=== PATIENT | male | born 1980 | race Two or more races ===

== ENCOUNTER 2017-03-15 15:45 | Inpatient (IN) | payer BC ==
[2017-03-15 17:07] VITALS: BMI 27.9
--- NOTE | 2017-03-15 20:34 | HP ---
CIWA Score - CIWA Score Nausea/Vomitin Muscle Tremors: 3 Anxiety: 2 Agitation: 2 Paroxysmal Sweats: 1-Minimal Palms Moist Orientation: 0-Oriented Tacttile Disturbances: 1-Very Mild Itch/Numbness Auditory Disturbances: 0-None Visual Disturbances: 2-Mild Sensitivity Headache: 1-Very Mild CIWA-Ar Total Score: 14 Admission ROS BHS - HPI Chief Complaint: WITHDRAWAL SYMPTOMS Allergies/Adverse Reactions: Allergies Allergy/AdvReac Type Severity Reaction Status Date / Time No Known Allergies Allergy Verified 03/15/17 17:18 History of Present Illness: 37 Y.O. MAN WITH A HISTORY OF ALCOHOL DEPENDENCE IS HERE SEEKING DETOX SERVICES. CLIENT WAS DISCHARGED TODAY FROM [facility] FOR AFTER BEING ADMITTED 2 DAYS FOR TREATMENT OF PNEUMONIA. HE ASSESSED TO R/O ACUTE SKULL FX AFTER HITTING HIS HEAD DURING SYNCOPE EPISODE. Exam Limitations: No Limitations - Ebola screening Have you traveled outside of the country in the last 21 days: No Have you had contact with anyone from an Ebola affected area: No Have you been sick,other than usual withdrawal symptoms: No Do you have a fever: No - Review of Systems Constitutional: Chills, Loss of Appetite, Unintentional Wgt. Loss EENT: reports: Tearing, Nose Congestion Respiratory: reports: Cough, Shortness of Breath, Wheezing Cardiac: reports: Chest Pain GI: reports: Nausea : reports: Frequency Musculoskeletal: reports: Back Pain, Joint Pain Integumentary: reports: Bruising Neuro: reports: Headache, Tremors Endocrine: reports: No Symptoms Reported Hematology: reports: Anemia Psychiatric: reports: Orientated x3, Anxious, Depressed, other (BIPOLAR) Other Systems: Reviewed and Negative Patient History - Patient Medical History Hx Anemia: Yes Hx Asthma: No Hx Chronic Obstructive Pulmonary Disease (COPD): No Hx Cancer: No Hx Cardiac Disorders: No Hx Congestive Heart Failure: No Hx Hypertension: No Hx Hypercholesterolemia: No Hx Pacemaker: No HX Cerebrovascular Accident: No 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; REPORTS BLACKS R/T ETOH) Hx Dementia: Yes Hx Diabetes: No Hx Gastrointestinal Disorders: No Hx Liver Disease: No Hx Genitourinary Disorders: No Hx Sexually Transmitted Disorders: No Hx Renal Disease (ESRD): No Hx Thyroid Disease: No Hx Human Immunodeficiency Virus (HIV): No Hx Hepatitis C: No Hx Depression: Yes Hx Suicide Attempt: Yes (ATTEMPTED DRUG OVERDOSE MANY YEARS AGO) Hx Bipolar Disorder: Yes Hx Schizophrenia: No - Patient Surgical History Past Surgical History: No Hx Neurologic Surgery: No Hx Cataract Extraction: No Hx Cardiac Surgery: No Hx Lung Surgery: No Hx Breast Surgery: No Hx Breast Biopsy: No Hx Abdominal Surgery: No Hx Appendectomy: No Hx Cholecystectomy: No Hx Genitourinary Surgery: No Hx Section: No Hx Orthopedic Surgery: No Anesthesia Reaction: No - PPD History Previous Implant?: Yes Documented Results: Negative w/o proof PPD to be Administered?: Yes - Reproductive History Patient is a Female of Child Bearing Age (11 -55 yrs old): No - Smoking Cessation Smoking history: Current every day smoker Have you smoked in the past 12 months: Yes Aproximately how many cigarettes per day: 10 Hx Chewing Tobacco Use: No Initiated information on smoking cessation: Yes 'Breaking Loose' booklet given: 03/15/17 - Substance & Tx. History Hx Alcohol Use: Yes Hx Substance Use: Yes Substance Use Type: Alcohol Hx Substance Use Treatment: No - Substances Abused Alcohol Route: Oral Frequency: Daily Amount used: LIQUOR- 2 PINTS, BEER- 4 (25oz) Age of first use: 14 Date of Last Use: 03/14/17 Family Disease History - Family Disease History Family Disease History: Heart Disease: Grandparent, CA: Grandparent, Respiratory : Mother, Other: Father (OPIOID DEPENDENCE) Admission Physical Exam S - Vital Signs Vital Signs: Vital Signs - 24 hr 03/15/17 17:05 Temperature 98.8 F Pulse Rate 73 Respiratory 18 Rate Blood Pressure 136/92 - Physical General Appearance: Yes: Tremorous, Irritable, Sweating, Anxious HEENTM: Yes: Hearing grossly Normal, Normocephalic Respiratory: Yes: Chest Non-Tender, Lungs Clear, No Respiratory Distress, No Accessory Muscle Use Neck: Yes: No masses,lesions,Nodules, Trachea in good position Breast: Yes: Breast Exam Deferred Cardiology: Yes: Regular Rhythm, Regular Rate Abdominal: Yes: Normal Bowel Sounds, Non Tender Genitourinary: Yes: Other (NO COMPLAINTS REPORTED) Back: Yes: Normal Inspection Musculoskeletal: Yes: full range of Motion, Gait Steady, Pelvis Stable Extremities: Yes: Normal Inspection, Normal Range of Motion, Non-Tender Neurological: Yes: Alert, Normal Mood/Affect, Normal Response Integumentary: Yes: Normal Color, Dry, Warm Lymphatic: Yes: Within Normal Limits - Diagnostic (1) Alcohol dependence with uncomplicated withdrawal Current Visit: Yes Status: Chronic (2) Pneumonia Current Visit: Yes Status: Acute (3) Nicotine dependence Current Visit: Yes Status: Chronic Cleared for Admission [facility] - Detox or Rehab [facility] Level of Care: Medically Managed Detox Regimen/Protocol: Librium S Breath Alcohol Content Breath Alcohol Content: 0 Urine Drug Screen - Results Drug Screen Negative: Yes
[2017-03-15] MEDS ORDERED: IBUPROFEN 400 MG TABLET (FP) PO PRN (20:55)
[2017-03-15] MEDS ORDERED: MENTHOL/PHENOL 1 EACH UD MM PRN (20:55)
[2017-03-15] MEDS ORDERED: MAGNESIUM HYDROX 2400MG/30ML ORAL SUSPENSION 30 ML CUP PO PRN (20:55)
[2017-03-15] MEDS ORDERED: chlordiazePOXIDE HCL 25 MG CAPSULE PO PRN (20:55)
[2017-03-15] MEDS ORDERED: NICOTINE POLACRILEX 4 MG GUM BC PRN (20:55)
[2017-03-15] MEDS ORDERED: hydrOXYzine PAMOATE 50 MG CAPSULE (FP) PO PRN (20:55)
[2017-03-15] MEDS ORDERED: chlordiazePOXIDE HCL 25 MG CAPSULE PO ONE (20:55)
[2017-03-15] MEDS ORDERED: MAGNESIUM CITRATE 300 ML BOTTLE PO PRN (20:55)
[2017-03-15] MEDS ORDERED: LOPERAMIDE HCL 2 MG CAPSULE PO PRN (20:55)
[2017-03-15] MEDS ORDERED: P-EPHED 60MG/TRIPROLIDI 2.5MG TABLET PO PRN (20:55)
[2017-03-15] MEDS ORDERED: MAG HYDROX/AL HYDROX/SIMETH 30 ML UNIT-DOSE CUP PO PRN (20:55)
[2017-03-15] MEDS ORDERED: NICOTINE POLACRILEX 2 MG GUM BC PRN (20:55)
[2017-03-15] MEDS ORDERED: ACETAMINOPHEN 325 MG TABLET (FP) PO PRN (20:55)
[2017-03-15] MEDS ORDERED: guaiFENesin/D-METHORPHAN HB 10 ML UNIT-DOSE CUPS PO PRN (20:55)
[2017-03-15] MEDS: chlordiazePOXIDE HCL 25 MG CAPSULE PO SCH (23:10)
[2017-03-15] MEDS: THIAMINE HCL 100 MG TABLET (FP) PO SCH (23:10)
[2017-03-16 01:30] LABS: URINE APPEARANCE CLEAR; URINE BILIRUBIN NEGATIVE (NEGATIVE); URINE BLOOD NEGATIVE (NEGATIVE); URINE COLOR YELLOW; URINE GLUCOSE (UA) NEGATIVE (NEGATIVE); URINE KETONE TRACE (NEGATIVE); URINE NITRITE NEGATIVE (NEGATIVE); URINE PROTEIN NEGATIVE (NEGATIVE); URINE UROBILINOGEN 4.0 E.U/dl mg/dL (0.2-1.0)
[2017-03-16] MEDS: chlordiazePOXIDE HCL 25 MG CAPSULE PO SCH ×4 (05:22→22:28)
--- NOTE | 2017-03-16 09:03 | EKG ---
Test Reason : Blood Pressure : / mmHG Vent. Rate : 076 BPM Atrial Rate : 076 BPM P-R Int : 148 ms QRS Dur : 096 ms QT Int : 386 ms P-R-T Axes : 072 066 062 degrees QTc Int : 434 ms NORMAL SINUS RHYTHM NONSPECIFIC T WAVE ABNORMALITY ABNORMAL ECG NO PREVIOUS ECGS AVAILABLE Confirmed by CORIE OLIVAS MD ([id number]) on 03/16/2017 9:02:39 AM Referred By: Confirmed By:CORIE OLIVAS MD
[2017-03-16] MEDS ORDERED: LEVOFLOXACIN 750 MG TABLET PO SCH (10:00)
[2017-03-16 10:25] LABS: ALK PHOS 78 U/L (45-117); ANION GAP 8 (8-16); BILIRUBIN,TOTAL 1.3 mg/dL (0.2-1.0); CALCIUM 8.1 mg/dL (8.5-10.1); CO2 25 mmol/L (21-32); CREATININE 0.9 mg/dL (0.7-1.3); GLUCOSE,RANDOM 121 mg/dL (74-106); MCH 32.2 pg (25.7-33.7); MCHC 33.2 g/dl (32.0-35.9); MEAN CELL VOLUME 96.8 fl (80-96); MEAN PLT VOLUME 8.1 fl (7.5-11.1); PLATELET COUNT 280 K/MM3 (134-434); RDW 13.2 % (11.9-15.9); SGOT/AST 19 U/L (15-37); SGPT/ALT 20 U/L (12-78); TOT PROT 6.6 g/dl (6.4-8.2); WHITE BLOOD COUNT 6.8 K/mm3 (4.0-10.0)
[2017-03-16 10:34] LABS: URINE LEUK ESTERASE Negative (NEGATIVE)
[2017-03-16] MEDS: PRENATAL VITAMINS W/ FOLIC ACID TABLET (FP) PO SCH (12:09)
[2017-03-16] MEDS: LEVOFLOXACIN 500 MG, LEVOFLOXACIN 250 MG PO SCH (12:09)
[2017-03-16] MEDS: NICOTINE 14 MG/24 HOURS TOPICAL PATCH TD SCH (12:10)
--- NOTE | 2017-03-16 14:58 | PN ---
S CIWA - CIWA Score Nausea/Vomitin-No Nausea/No Vomiting Muscle Tremors: 3 Anxiety: 4-Mod. Anxious/Guarded Agitation: 4-Moderately Restless Paroxysmal Sweats: 3 Orientation: 0-Oriented Tacttile Disturbances: 0-None Auditory Disturbances: 0-None Visual Disturbances: 0-None Headache: 0-None Present CIWA-Ar Total Score: 14 BHS Progress Note (SOAP) Subjective: Sweating,interrupted sleep,restless,tremors,anxiety Objective: 03/16/17 14:57 Vital Signs - 8 hr 03/16/17 14:37 Temperature 98.1 F Pulse Rate 85 Respiratory 20 Rate Blood Pressure 125/73 Laboratory Tests 03/15/17 03/16/17 03/16/17 22:30 08:20 08:20 WBC 6.8 RBC 3.72 L Hgb 12.0 Hct 36.0 MCV 96.8 H MCH 32.2 MCHC 33.2 RDW 13.2 Plt Count 280 MPV 8.1 Sodium 142 Potassium 3.8 Chloride 109 H Carbon Dioxide 25 Anion Gap 8 BUN 11 Creatinine 0.9 Creat Clearance w eGFR > 60 Random Glucose 121 H Calcium 8.1 L Total Bilirubin 1.3 H AST 19 ALT 20 Alkaline Phosphatase 78 Total Protein 6.6 Albumin 3.0 L Urine Color Yellow Urine Appearance Clear Urine pH 6.0 Ur Specific [place] 1.011 Urine Protein Negative Urine Glucose (UA) Negative Urine Ketones Trace H Urine Blood Negative Urine Nitrite Negative Urine Bilirubin Negative Urine Urobilinogen 4.0 e.u/dl Ur Leukocyte Esterase Negative RPR Titer 03/16/17 08:20 WBC RBC Hgb Hct MCV MCH MCHC RDW Plt Count MPV Sodium Potassium Chloride Carbon Dioxide Anion Gap BUN Creatinine Creat Clearance w eGFR Random Glucose Calcium Total Bilirubin AST ALT Alkaline Phosphatase Total Protein Albumin Urine Color Urine Appearance Urine pH Ur Specific [place] Urine Protein Urine Glucose (UA) Urine Ketones Urine Blood Urine Nitrite Urine Bilirubin Urine Urobilinogen Ur Leukocyte Esterase RPR Titer Nonreactive labs noted Assessment: 03/16/17 14:57 Withdrawal sx. Plan: Continue detox
--- NOTE | 2017-03-16 17:36 | CONSULT ---
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 Substance Abuse History: Confirmed by patient in this session.See [facility] report for details : Smoking history: Current every day smoker. Have you smoked in the past 12 months: Yes. Aproximately how many cigarettes per day: 10. Hx Chewing Tobacco Use: No. Initiated information on smoking cessation: Yes. ' Breaking Loose' booklet given: 03/15/17. - Substance & Tx. History. Hx Alcohol Use: Yes. Hx Substance Use: Yes. Substance Use Type: Alcohol. Hx Substance Use Treatment: No. - Substances Abused. Alcohol. Route: Oral. Frequency: Daily. Amount used: LIQUOR- 2 PINTS, BEER- 4 (25oz). Age of first use: 14. Date of Last Use: 03/14/17 Medical History: Recently treated for pneumonia,history of anemis,seizures ( withdrawal-related),lower back pain and tendinitis. Psychiatric History: Patient admits to past psychiatric hospitalizations ( [facility] [place] : 2003).Diagnosed with Bipolar Disorder and PTSD.Used to be prescribed abilify.No history of OPD care.Mr Lamar reports total non-exposure to psychotropic medications for eight months.Decided to abstain from medications because of side effects (self-report).patient admits to a history of suicide attempts via overdose with cocaine (two years ago). Physical/Sexual Abuse/Trauma History: Patient declines to discuss this domain. Additional Comment: Drug Screen is negative.Noted. Mental Status Exam - Mental Status Exam Alert and Oriented to: Time, Place, Person Cognitive Function: Good Patient Appearance: Well Groomed Mood: Withdrawn, Anxious Affect: Mood Congruent Patient Behavior: Fatigued, Appropriate, Cooperative Speech Pattern: Clear, Appropriate Voice Loudness: Normal Thought Process: Goal Oriented Thought Disorder: Not Present Hallucinations: Denies Suicidal Ideation: Denies Homicidal Ideation: Denies Insight/Judgement: Poor Sleep: Poorly, Difficulty falling asleep (wants ambien) Appetite: Good Muscle strength/Tone: Normal Gait/Station: Normal Psychiatric Findings - Problem List ([place] 1, 2,3) (1) Alcohol dependence with uncomplicated withdrawal Current Visit: Yes Status: Acute (2) Nicotine dependence Current Visit: Yes Status: Acute (3) Substance induced mood disorder Current Visit: Yes Status: Acute (4) Insomnia Current Visit: Yes Status: Acute - Initial Treatment Plan Initial Treatment Plan: Psychoeducation.Detoxification.Sleep hygiene.Ambien 10 mg po hs prn.Patient is informed of potential for parasomnias.He agrees with this careplan.Observation.
[2017-03-16] MEDS: ZOLPIDEM TARTRATE 5 MG TABLET PO PRN (22:28)
[2017-03-16] MEDS: THIAMINE HCL 100 MG TABLET (FP) PO SCH (22:28)
[2017-03-17] MEDS: LEVOFLOXACIN 500 MG, LEVOFLOXACIN 250 MG PO SCH (05:37)
[2017-03-17] MEDS: chlordiazePOXIDE HCL 25 MG CAPSULE PO SCH ×3 (05:37→17:35)
--- NOTE | 2017-03-17 10:18 | PN ---
[facility] CIWA - CIWA Score Nausea/Vomitin-No Nausea/No Vomiting Muscle Tremors: 3 Anxiety: 2 Agitation: 2 Paroxysmal Sweats: 2 Orientation: 0-Oriented Tacttile Disturbances: 0-None Auditory Disturbances: 0-None Visual Disturbances: 0-None Headache: 0-None Present CIWA-Ar Total Score: 9 S Progress Note (SOAP) Subjective: sweat tremor anxiety GI upset Objective: 03/17/17 10:17 Vital Signs Temperature 97.7 F 03/17/17 09:51 Pulse Rate 83 03/17/17 09:51 Respiratory Rate 18 03/17/17 09:51 Blood Pressure 132/77 03/17/17 09:51 O2 Sat by Pulse Oximetry (%) Laboratory Last Values WBC 6.8 K/mm3 (4.0-10.0) 03/16/17 08:20 RBC 3.72 M/mm3 (4.00-5.60) L 03/16/17 08:20 Hgb 12.0 GM/dL (11.7-16.9) 03/16/17 08:20 Hct 36.0 % (35.4-49) 03/16/17 08:20 MCV 96.8 fl (80-96) H 03/16/17 08:20 MCH 32.2 pg (25.7-33.7) 03/16/17 08:20 MCHC 33.2 g/dl (32.0-35.9) 03/16/17 08:20 RDW 13.2 % (11.9-15.9) 03/16/17 08:20 Plt Count 280 K/MM3 (134-434) 03/16/17 08:20 MPV 8.1 fl (7.5-11.1) 03/16/17 08:20 Sodium 142 mmol/L (136-145) 03/16/17 08:20 Potassium 3.8 mmol/L (3.5-5.1) 03/16/17 08:20 Chloride 109 mmol/L (98-107) H 03/16/17 08:20 Carbon Dioxide 25 mmol/L (21-32) 03/16/17 08:20 Anion Gap 8 (8-16) 03/16/17 08:20 BUN 11 mg/dL (7-18) 03/16/17 08:20 Creatinine 0.9 mg/dL (0.7-1.3) 03/16/17 08:20 Creat Clearance w eGFR > 60 (>60) 03/16/17 08:20 Random Glucose 121 mg/dL (74-106) H 03/16/17 08:20 Calcium 8.1 mg/dL (8.5-10.1) L 03/16/17 08:20 Total Bilirubin 1.3 mg/dL (0.2-1.0) H 03/16/17 08:20 AST 19 U/L (15-37) 03/16/17 08:20 ALT 20 U/L (12-78) 03/16/17 08:20 Alkaline Phosphatase 78 U/L (45-117) 03/16/17 08:20 Total Protein 6.6 g/dl (6.4-8.2) 03/16/17 08:20 Albumin 3.0 g/dl (3.4-5.0) L 03/16/17 08:20 Urine Color Yellow 03/15/17 22:30 Urine Appearance Clear 03/15/17 22:30 Urine pH 6.0 (5.0-8.0) 03/15/17 22:30 Ur Specific [place] 1.011 (1.001-1.035) 03/15/17 22:30 Urine Protein Negative (NEGATIVE) 03/15/17 22:30 Urine Glucose (UA) Negative (NEGATIVE) 03/15/17 22:30 Urine Ketones Trace (NEGATIVE) H 03/15/17 22:30 Urine Blood Negative (NEGATIVE) 03/15/17 22:30 Urine Nitrite Negative (NEGATIVE) 03/15/17 22:30 Urine Bilirubin Negative (NEGATIVE) 03/15/17 22:30 Urine Urobilinogen 4.0 e.u/dl mg/dL (0.2-1.0) 03/15/17 22:30 Ur Leukocyte Esterase Negative (NEGATIVE) 03/15/17 22:30 RPR Titer Nonreactive (NONREACTIVE) 03/16/17 08:20 lab noted Assessment: 03/17/17 10:17 withdrawal sx Plan: continue deotx
[2017-03-17] MEDS: PRENATAL VITAMINS W/ FOLIC ACID TABLET (FP) PO SCH (10:32)
[2017-03-17] MEDS: NICOTINE 14 MG/24 HOURS TOPICAL PATCH TD SCH (10:32)
[2017-03-17] MEDS: THIAMINE HCL 100 MG TABLET (FP) PO SCH (22:15)
[2017-03-17] MEDS: chlordiazePOXIDE 5 MG CAPSULE PO SCH (22:15)
[2017-03-17] MEDS: ZOLPIDEM TARTRATE 5 MG TABLET PO PRN (22:15)
[2017-03-18] MEDS: LEVOFLOXACIN 500 MG, LEVOFLOXACIN 250 MG PO SCH (05:11)
[2017-03-18] MEDS: chlordiazePOXIDE 5 MG CAPSULE PO SCH ×3 (05:12→22:39)
[2017-03-18] MEDS: PRENATAL VITAMINS W/ FOLIC ACID TABLET (FP) PO SCH (10:25)
[2017-03-18] MEDS: NICOTINE 14 MG/24 HOURS TOPICAL PATCH TD SCH (10:27)
--- NOTE | 2017-03-18 12:38 | PN ---
BHS Progress Note (SOAP) Subjective: irritable interrupted sleep agitation Objective: 03/18/17 12:38 Vital Signs Temperature 98.1 F 03/18/17 09:39 Pulse Rate 85 03/18/17 09:39 Respiratory Rate 18 03/18/17 09:39 Blood Pressure 120/78 03/18/17 09:39 O2 Sat by Pulse Oximetry (%) aaox3 ambulating no acute distress Assessment: 03/18/17 12:38 withdrawal sx Plan: continue detox psych ordered for insomnia d/c in am
[2017-03-18] MEDS: ZOLPIDEM TARTRATE 5 MG TABLET PO PRN (22:37)
[2017-03-18] MEDS: chlordiazePOXIDE HCL 10 MG CAPSULE PO SCH (22:37)
[2017-03-18] MEDS: THIAMINE HCL 100 MG TABLET (FP) PO SCH (22:37)
[2017-03-19] MEDS: LEVOFLOXACIN 500 MG, LEVOFLOXACIN 250 MG PO SCH (05:14)
[2017-03-19] MEDS: chlordiazePOXIDE HCL 10 MG CAPSULE PO SCH (05:14)
[2017-03-19 06:12] VITALS: BP 132/77; PULSE 76; TEMP 97.7
--- NOTE | 2017-03-21 17:27 | DS ---
[facility] Detox Discharge Summary Admission Date: 03/15/17 Discharge Date: 03/19/17 - History Present History: Alcohol Dependence Additional Comments: patient refused to go to rehab, wanted to return to work after completing detox Pertinent Past History: anxiety, depression, insomnia, nicotien dependence, dhydration, pneumonia on antibiotics from recent hospitalization prior to admission - Physical Exam Results Vital Signs: Vital Signs Temperature 97.7 F 03/19/17 06:12 Pulse Rate 76 03/19/17 06:12 Respiratory Rate 18 03/19/17 06:12 Blood Pressure 132/77 03/19/17 06:12 O2 Sat by Pulse Oximetry (%) Laboratory Tests 03/15/17 03/16/17 03/16/17 22:30 08:20 08:20 WBC 6.8 RBC 3.72 L Hgb 12.0 Hct 36.0 MCV 96.8 H MCH 32.2 MCHC 33.2 RDW 13.2 Plt Count 280 MPV 8.1 Sodium 142 Potassium 3.8 Chloride 109 H Carbon Dioxide 25 Anion Gap 8 BUN 11 Creatinine 0.9 Creat Clearance w eGFR > 60 Random Glucose 121 H Calcium 8.1 L Total Bilirubin 1.3 H AST 19 ALT 20 Alkaline Phosphatase 78 Total Protein 6.6 Albumin 3.0 L Urine Color Yellow Urine Appearance Clear Urine pH 6.0 Ur Specific [place] 1.011 Urine Protein Negative Urine Glucose (UA) Negative Urine Ketones Trace H Urine Blood Negative Urine Nitrite Negative Urine Bilirubin Negative Urine Urobilinogen 4.0 e.u/dl Ur Leukocyte Esterase Negative RPR Titer 03/16/17 08:20 WBC RBC Hgb Hct MCV MCH MCHC RDW Plt Count MPV Sodium Potassium Chloride Carbon Dioxide Anion Gap BUN Creatinine Creat Clearance w eGFR Random Glucose Calcium Total Bilirubin AST ALT Alkaline Phosphatase Total Protein Albumin Urine Color Urine Appearance Urine pH Ur Specific [place] Urine Protein Urine Glucose (UA) Urine Ketones Urine Blood Urine Nitrite Urine Bilirubin Urine Urobilinogen Ur Leukocyte Esterase RPR Titer Nonreactive low alb/malnutrition 2/2 substance use, hyperglycemia Pertinent Admission Physical Exam Findings: withdrawal sx, chest clear, nAD - Treatment Hospital Course: Detox Protocol Followed, Detoxed Safely, Responded well, Discharged Condition Good Patient has Accepted a Rehab Referral to: NO - Medication Discharge Medications: Ambulatory Orders Levofloxacin [Levaquin] 750 mg PO DAILY 03/15/17 - Diagnosis (1) Alcohol dependence with uncomplicated withdrawal Status: Acute (2) Insomnia Status: Acute (3) Nicotine dependence Status: Acute (4) Pneumonia Status: Acute (5) Substance induced mood disorder Status: Acute - AMA Did Patient Leave Against Medical Advice: No
== END 2017-03-19 07:00 | disposition home or self-care (01) | DRG 775 ==
LOC: YASAS 15:45 → Y6N 18:40
PROVIDERS: ADMIT Internal Medicine; ATTEND Internal Medicine
PROC: HZ2ZZZZ Detoxification Services for Substance Abuse Treatment (ICD-10-PCS; principal; 2017-03-15)
DX: F10.230 Alcohol dependence with withdrawal, uncomplicated (principal); F17.210 Nicotine dependence, cigarettes, uncomplicated; F19.24 Other psychoactive substance dependence with psychoactive substance-induced mood disorder; G47.00 Insomnia, unspecified; Z86.69 Personal history of other diseases of the nervous system and sense organs
CPT/HCPCS: 36415; 80053; 81003; 85027; 86593; 93005; 93010

== ENCOUNTER 2017-04-20 12:57 | Inpatient (IN) | payer BC ==
[2017-04-20 14:50] VITALS: BMI 24.5
--- NOTE | 2017-04-20 16:46 | HP ---
CIWA Score - CIWA Score Nausea/Vomitin Muscle Tremors: 3 Anxiety: 3 Agitation: 3 Paroxysmal Sweats: 2 Orientation: 0-Oriented Tacttile Disturbances: 2-Mild Itch/Numbness/Burn Auditory Disturbances: 2-Mild Harshness/Frighten Visual Disturbances: 0-None Headache: 2-Mild CIWA-Ar Total Score: 20 Admission ROS BHS - HPI Chief Complaint: i am here need help from drinking alcohol,cocaine Allergies/Adverse Reactions: Allergies Allergy/AdvReac Type Severity Reaction Status Date / Time No Known Allergies Allergy Verified 04/20/17 17:19 History of Present Illness: this 37 years old male with alcohol,cocaine and cannabis dependence,seeking detox,last detox [facility] 03/15/17 to 03/19/17 bipolar disorder,insomnia nicotine dependence longest period of sobriety 11 months Exam Limitations: No Limitations - Ebola screening Have you been sick,other than usual withdrawal symptoms: No - Review of Systems Constitutional: Loss of Appetite, Malaise, Night Sweats, Changes in sleep, Weakness EENT: reports: Nose Congestion Respiratory: reports: No Symptoms reported Cardiac: reports: No Symptoms Reported GI: reports: Nausea, Vomiting, Abdominal cramping : reports: No Symptoms Reported Musculoskeletal: reports: Back Pain, Muscle Pain Integumentary: reports: Dryness Neuro: reports: Headache, Tremors Endocrine: reports: No Symptoms Reported Hematology: reports: No Symptoms Reported Psychiatric: reports: Anxious (insomnia), Depressed Patient History - Patient Medical History Hx Anemia: Yes (no med) Hx Asthma: No Hx Chronic Obstructive Pulmonary Disease (COPD): No Hx Cancer: No Hx Cardiac Disorders: No Hx Congestive Heart Failure: No Hx Hypertension: No Hx Hypercholesterolemia: No Hx Pacemaker: No HX Cerebrovascular Accident: No 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; REPORTS BLACKS R/T ETOH) Hx Dementia: Yes Hx Diabetes: No Hx Gastrointestinal Disorders: No Hx Liver Disease: No Hx Genitourinary Disorders: No Hx Sexually Transmitted Disorders: No Hx Renal Disease (ESRD): No Hx Thyroid Disease: No Hx Human Immunodeficiency Virus (HIV): No (last 03/31 negative) Hx Hepatitis C: No Hx Depression: Yes Hx Suicide Attempt: Yes (ATTEMPTED DRUG OVERDOSE MANY YEARS AGO) Hx Bipolar Disorder: Yes Hx Schizophrenia: No Other Medical History: no suicidal,no homicidal - Patient Surgical History Past Surgical History: No Hx Neurologic Surgery: No Hx Cataract Extraction: No Hx Cardiac Surgery: No Hx Lung Surgery: No Hx Breast Surgery: No Hx Breast Biopsy: No Hx Abdominal Surgery: No Hx Appendectomy: No Hx Cholecystectomy: No Hx Genitourinary Surgery: No Hx Section: No Hx Orthopedic Surgery: No Anesthesia Reaction: No - PPD History Previous Implant?: Yes Documented Results: Negative w/proof Date: 03/17/17 Results: o mm PPD to be Administered?: No - Smoking Cessation Smoking history: Current every day smoker Have you smoked in the past 12 months: Yes Aproximately how many cigarettes per day: 10 Hx Chewing Tobacco Use: No Initiated information on smoking cessation: Yes 'Breaking Loose' booklet given: 04/20/17 - Substance & Tx. History Hx Alcohol Use: Yes Hx Substance Use: Yes Substance Use Type: Alcohol, Cocaine, Heroin Hx Substance Use Treatment: Yes ([facility] 03/15/17 to 03/19/17) - Substances Abused Alcohol Route: Oral Frequency: Daily Amount used: 1pint of vodka/6 packs of 24 ozs of beer Age of first use: 13 Date of Last Use: 04/19/17 Cocaine Route: Inhalation Frequency: 3-6 times per week Amount used: 50$ to 100$ Age of first use: 20 Date of Last Use: 04/18/17 Heroin Route: Inhalation Frequency: 3-6 times per week Amount used: 1 to 2 bag Age of first use: 25 Date of Last Use: 04/19/17 Marijuana/Hashish Route: Smoking Frequency: 3-6 times per week (10$) Amount used: 10$ Age of first use: 14 Date of Last Use: 04/17/17 Family Disease History - Family Disease History Family Disease History: Diabetes: Mother (), Heart Disease: Grandparent , CA: Grandparent, Respiratory: Mother, Other: Father (OPIOID DEPENDENCE, ) Admission Physical Exam S - Vital Signs Vital Signs: Vital Signs - 24 hr 04/20/17 14:46 Temperature 97.8 F Pulse Rate 86 Respiratory 18 Rate Blood Pressure 125/67 - Physical General Appearance: Yes: Moderate Distress, Tremorous, Irritable, Sweating, Anxious HEENTM: Yes: Normal ENT Inspection, HECTOR, Pharynx Normal Respiratory: Yes: Lungs Clear, Normal Breath Sounds, No Respiratory Distress Neck: Yes: Within Normal Limits Breast: Yes: Within Normal Limits Cardiology: Yes: Within Normal Limits, Regular Rhythm, Regular Rate, S1, S2 Abdominal: Yes: Within Normal Limits, Normal Bowel Sounds, Non Tender, Flat, Soft Genitourinary: Yes: Within Normal Limits Back: Yes: Muscle Spasm Musculoskeletal: Yes: Back pain, Muscle Pain Extremities: Yes: Tremors Neurological: Yes: improvement intern II-XII NML intact, Fully Oriented, Alert, Motor Strength 5/5 Integumentary: Yes: Dry Lymphatic: Yes: Within Normal Limits - Diagnostic (1) Alcohol dependence with uncomplicated withdrawal Current Visit: No Status: Acute (2) Nicotine dependence Current Visit: No Status: Acute (3) Cocaine dependence Current Visit: Yes Status: Acute (4) Cannabis dependence Current Visit: Yes Status: Acute (5) Seizure Current Visit: Yes Status: Acute (6) Syncope Current Visit: Yes Status: Acute (7) Bipolar disorder Current Visit: Yes Status: Acute (8) Heroin abuse Current Visit: Yes Status: Acute Cleared for Admission [facility] - Detox or Rehab [facility] Level of Care: Medically Managed Detox Regimen/Protocol: Librium (patient urine for opiate negative,awared he ill not get methadone detox) [facility] Breath Alcohol Content Breath Alcohol Content: 0 Urine Drug Screen - Results Drug Screen Negative: No Urine Drug Screen Results: THC-Marijuana, KALA-Cocaine
[2017-04-20] MEDS ORDERED: MAGNESIUM CITRATE 300 ML BOTTLE PO PRN (16:58)
[2017-04-20] MEDS ORDERED: ACETAMINOPHEN 325 MG TABLET (FP) PO PRN (16:58)
[2017-04-20] MEDS ORDERED: MAG HYDROX/AL HYDROX/SIMETH 30 ML UNIT-DOSE CUP PO PRN (16:58)
[2017-04-20] MEDS ORDERED: IBUPROFEN 400 MG TABLET (FP) PO PRN (16:58)
[2017-04-20] MEDS ORDERED: LOPERAMIDE HCL 2 MG CAPSULE PO PRN (16:58)
[2017-04-20] MEDS ORDERED: NICOTINE POLACRILEX 2 MG GUM BC PRN (16:58)
[2017-04-20] MEDS ORDERED: MENTHOL/PHENOL 1 EACH UD MM PRN (16:58)
[2017-04-20] MEDS ORDERED: MAGNESIUM HYDROX 2400MG/30ML ORAL SUSPENSION 30 ML CUP PO PRN (16:58)
[2017-04-20] MEDS ORDERED: guaiFENesin/D-METHORPHAN HB 10 ML UNIT-DOSE CUPS PO PRN (16:58)
[2017-04-20] MEDS ORDERED: hydrOXYzine PAMOATE 50 MG CAPSULE (FP) PO PRN (16:58)
[2017-04-20] MEDS ORDERED: chlordiazePOXIDE HCL 25 MG CAPSULE PO ONE (16:58)
[2017-04-20] MEDS ORDERED: chlordiazePOXIDE HCL 25 MG CAPSULE PO PRN (16:58)
[2017-04-20] MEDS ORDERED: P-EPHED 60MG/TRIPROLIDI 2.5MG TABLET PO PRN (16:58)
[2017-04-20] MEDS ORDERED: CYCLOBENZAPRINE HCL 10 MG TABLET (FP) PO PRN (17:03)
[2017-04-20] MEDS: NICOTINE 21 MG/24 HOURS TOPICAL PATCH TD SCH (18:25)
[2017-04-20] MEDS: chlordiazePOXIDE HCL 25 MG CAPSULE PO SCH (22:07)
[2017-04-20] MEDS: cloNIDine HCL 0.1 MG TABLET PO SCH (22:07)
[2017-04-20] MEDS: THIAMINE HCL 100 MG TABLET (FP) PO SCH (22:07)
[2017-04-20 22:17] LABS: URINE APPEARANCE CLEAR; URINE BILIRUBIN NEGATIVE (NEGATIVE); URINE BLOOD NEGATIVE (NEGATIVE); URINE COLOR YELLOW; URINE GLUCOSE (UA) NEGATIVE (NEGATIVE); URINE KETONE NEGATIVE (NEGATIVE); URINE LEUK ESTERASE NEGATIVE (NEGATIVE); URINE NITRITE NEGATIVE (NEGATIVE); URINE PROTEIN NEGATIVE (NEGATIVE)
[2017-04-21] MEDS: chlordiazePOXIDE HCL 25 MG CAPSULE PO SCH ×4 (05:47→22:04)
--- NOTE | 2017-04-21 07:26 | CONSULT ---
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 Substance Abuse History: Reports history of alcohol, heroin and marijuana use. Refer to addiction counselor's note for further information Medical History: Significant for recent treatment for pneumonia, history of anemia, K2-related seizure, lower back pain and tendinitis. Psychiatric History: Patient reports being diagnosed with Bipolar 10 years ago while incarcerated. Reports that while he was never formally diagnosed with PTSD he has experienced flashbaks, nightmares from things he witnessed during incarceration. Reports only one previous psychiatric inpatient admission in a [facility] but he has had numerous ER admissions for observation mostly at [facility]. Reports not receiving psychiatric outpatient treament at present but has received treatment with Abilify and Remeron in the past. Reports history of suicidal attempt by taking pills and cocaine. At present, reports feeling depressed and sleeping poorly Physical/Sexual Abuse/Trauma History: Denies history of verbal, physical or sexual abuse as well as DV relationship Additional Comment: Reports history of multiple previous arrests including 2 felony convictions. Mental Status Exam - Mental Status Exam Alert and Oriented to: Time, Place, Person Cognitive Function: Fair Patient Appearance: Well Groomed Mood: Depressed Affect: Appropriate Patient Behavior: Cooperative Speech Pattern: Clear Voice Loudness: Normal Thought Process: Intact, Goal Oriented Hallucinations: Denies Suicidal Ideation: Denies Homicidal Ideation: Denies Insight/Judgement: Poor Sleep: Poorly Appetite: Fair Muscle strength/Tone: Normal Gait/Station: Normal Psychiatric Findings - Problem List ([place] 1, 2,3) (1) Substance induced mood disorder Current Visit: No Status: Acute (2) Substance-induced sleep disorder Current Visit: Yes Status: Acute (3) Alcohol dependence with uncomplicated withdrawal Current Visit: No Status: Acute (4) Cocaine dependence Current Visit: Yes Status: Acute (5) Cannabis dependence Current Visit: Yes Status: Acute (6) Opioid abuse Current Visit: Yes Status: Acute (7) Nicotine dependence Current Visit: No Status: Acute (8) Seizure Current Visit: Yes Status: Acute (9) PTSD (post-traumatic stress disorder) Current Visit: Yes Status: Ruled-out - Initial Treatment Plan Initial Treatment Plan: 1) Start Ambien 10 mg po HS. 2) Continue inpatient detoxificatio
[2017-04-21] MEDS: PRENATAL VITAMINS W/ FOLIC ACID TABLET (FP) PO SCH (10:08)
[2017-04-21] MEDS: cloNIDine HCL 0.1 MG TABLET PO SCH ×2 (10:08→22:04)
[2017-04-21] MEDS: NICOTINE 21 MG/24 HOURS TOPICAL PATCH TD SCH (10:09)
[2017-04-21 10:20] LABS: ALBUMIN 3.2 g/dl (3.4-5.0); ALK PHOS 72 U/L (45-117); ANION GAP 6 (8-16); BILIRUBIN,TOTAL 0.8 mg/dL (0.2-1.0); BLOOD UREA NITROGEN 14 mg/dL (7-18); CALCIUM 7.9 mg/dL (8.5-10.1); CHLORIDE 106 mmol/L (98-107); CO2 27 mmol/L (21-32); CREATININE 0.8 mg/dL (0.7-1.3); GLUCOSE,RANDOM 85 mg/dL (74-106); HEMATOCRIT 36.5 % (35.4-49); HEMOGLOBIN 11.9 GM/dL (11.7-16.9); MCH 32.2 pg (25.7-33.7); MCHC 32.7 g/dl (32.0-35.9); MEAN CELL VOLUME 98.5 fl (80-96); MEAN PLT VOLUME 8.1 fl (7.5-11.1); PLATELET COUNT 240 K/MM3 (134-434); POTASSIUM 3.9 mmol/L (3.5-5.1); RBC 3.71 M/mm3 (4.00-5.60); RDW 14.2 % (11.9-15.9); SGOT/AST 27 U/L (15-37); SGPT/ALT 51 U/L (12-78); SODIUM 139 mmol/L (136-145); TOT PROT 6.4 g/dl (6.4-8.2); WHITE BLOOD COUNT 5.9 K/mm3 (4.0-10.0)
--- NOTE | 2017-04-21 11:38 | EKG ---
Test Reason : Blood Pressure : / mmHG Vent. Rate : 065 BPM Atrial Rate : 065 BPM P-R Int : 162 ms QRS Dur : 098 ms QT Int : 396 ms P-R-T Axes : 080 066 063 degrees QTc Int : 411 ms NORMAL SINUS RHYTHM EARLY REPOLARIZATION WHEN COMPARED WITH ECG OF 15-MAR-2017 22:36, NO SIGNIFICANT CHANGE WAS FOUND Confirmed by RADHA LLANOS MD ([id number]) on 04/21/2017 11:38:02 AM Referred By: Confirmed By:RADHA LLANOS MD
--- NOTE | 2017-04-21 14:02 | PN ---
[facility] CIWA - CIWA Score Nausea/Vomitin-No Nausea/No Vomiting Muscle Tremors: 3 Anxiety: 4-Mod. Anxious/Guarded Agitation: 3 Paroxysmal Sweats: 3 Orientation: 0-Oriented Tacttile Disturbances: 0-None Auditory Disturbances: 0-None Visual Disturbances: 0-None Headache: 1-Very Mild CIWA-Ar Total Score: 14 BHS Progress Note (SOAP) Subjective: Sweating,interrupted sleep,restless,tremors,anxiety Objective: 04/21/17 14:01 Vital Signs - 8 hr 04/21/17 10:32 Temperature 98.1 F Pulse Rate 76 Respiratory 18 Rate Blood Pressure 103/72 Laboratory Tests 04/20/17 04/21/17 04/21/17 21:00 07:40 07:40 WBC 5.9 RBC 3.71 L Hgb 11.9 Hct 36.5 MCV 98.5 H MCH 32.2 MCHC 32.7 RDW 14.2 Plt Count 240 MPV 8.1 Sodium 139 Potassium 3.9 Chloride 106 Carbon Dioxide 27 Anion Gap 6 L BUN 14 D Creatinine 0.8 Creat Clearance w eGFR > 60 Random Glucose 85 D Calcium 7.9 L Total Bilirubin 0.8 D AST 27 D ALT 51 D Alkaline Phosphatase 72 Total Protein 6.4 Albumin 3.2 L Urine Color Yellow Urine Appearance Clear Urine pH 5.0 Ur Specific [place] 1.020 Urine Protein Negative Urine Glucose (UA) Negative Urine Ketones Negative Urine Blood Negative Urine Nitrite Negative Urine Bilirubin Negative Urine Urobilinogen 2.0 Ur Leukocyte Esterase Negative RPR Titer HIV 1&2 Antibody Screen HIV P24 Antigen 04/21/17 04/21/17 07:40 07:40 WBC RBC Hgb Hct MCV MCH MCHC RDW Plt Count MPV Sodium Potassium Chloride Carbon Dioxide Anion Gap BUN Creatinine Creat Clearance w eGFR Random Glucose Calcium Total Bilirubin AST ALT Alkaline Phosphatase Total Protein Albumin Urine Color Urine Appearance Urine pH Ur Specific [place] Urine Protein Urine Glucose (UA) Urine Ketones Urine Blood Urine Nitrite Urine Bilirubin Urine Urobilinogen Ur Leukocyte Esterase RPR Titer Nonreactive HIV 1&2 Antibody Screen Negative HIV P24 Antigen Negative labs noted Assessment: 04/21/17 14:01 Withdrawal sx. Plan: Continue detox
[2017-04-21] MEDS: THIAMINE HCL 100 MG TABLET (FP) PO SCH (22:04)
[2017-04-21] MEDS: ZOLPIDEM TARTRATE 5 MG TABLET PO PRN (22:04)
[2017-04-22] MEDS: chlordiazePOXIDE HCL 25 MG CAPSULE PO SCH ×3 (06:12→17:34)
--- NOTE | 2017-04-22 10:00 | PN ---
[facility] CIWA - CIWA Score Nausea/Vomitin-No Nausea/No Vomiting Muscle Tremors: 4-Moderate,w/Arms Extend Anxiety: 4-Mod. Anxious/Guarded Agitation: 4-Moderately Restless Paroxysmal Sweats: 1-Minimal Palms Moist Orientation: 0-Oriented Tacttile Disturbances: 3-Moderate Itch/Numb/Burn Auditory Disturbances: 0-None Visual Disturbances: 0-None Headache: 0-None Present CIWA-Ar Total Score: 16 S Progress Note (SOAP) Subjective: ANXIETY,BODY ACHES,SWEATS, FATIGUE. Objective: 04/22/17 09:59 Vital Signs Temperature 99.3 F 04/22/17 09:54 Pulse Rate 69 04/22/17 09:54 Respiratory Rate 18 04/22/17 09:54 Blood Pressure 98/65 04/22/17 09:54 O2 Sat by Pulse Oximetry (%) Laboratory Last Values WBC 5.9 K/mm3 (4.0-10.0) 04/21/17 07:40 RBC 3.71 M/mm3 (4.00-5.60) L 04/21/17 07:40 Hgb 11.9 GM/dL (11.7-16.9) 04/21/17 07:40 Hct 36.5 % (35.4-49) 04/21/17 07:40 MCV 98.5 fl (80-96) H 04/21/17 07:40 MCH 32.2 pg (25.7-33.7) 04/21/17 07:40 MCHC 32.7 g/dl (32.0-35.9) 04/21/17 07:40 RDW 14.2 % (11.9-15.9) 04/21/17 07:40 Plt Count 240 K/MM3 (134-434) 04/21/17 07:40 MPV 8.1 fl (7.5-11.1) 04/21/17 07:40 Sodium 139 mmol/L (136-145) 04/21/17 07:40 Potassium 3.9 mmol/L (3.5-5.1) 04/21/17 07:40 Chloride 106 mmol/L (98-107) 04/21/17 07:40 Carbon Dioxide 27 mmol/L (21-32) 04/21/17 07:40 Anion Gap 6 (8-16) L 04/21/17 07:40 BUN 14 mg/dL (7-18) D 04/21/17 07:40 Creatinine 0.8 mg/dL (0.7-1.3) 04/21/17 07:40 Creat Clearance w eGFR > 60 (>60) 04/21/17 07:40 Random Glucose 85 mg/dL (74-106) D 04/21/17 07:40 Calcium 7.9 mg/dL (8.5-10.1) L 04/21/17 07:40 Total Bilirubin 0.8 mg/dL (0.2-1.0) D 04/21/17 07:40 AST 27 U/L (15-37) D 04/21/17 07:40 ALT 51 U/L (12-78) D 04/21/17 07:40 Alkaline Phosphatase 72 U/L (45-117) 04/21/17 07:40 Total Protein 6.4 g/dl (6.4-8.2) 04/21/17 07:40 Albumin 3.2 g/dl (3.4-5.0) L 04/21/17 07:40 Urine Color Yellow 04/20/17 21:00 Urine Appearance Clear 04/20/17 21:00 Urine pH 5.0 (5.0-8.0) 04/20/17 21:00 Ur Specific [place] 1.020 (1.001-1.035) 04/20/17 21:00 Urine Protein Negative (NEGATIVE) 04/20/17 21:00 Urine Glucose (UA) Negative (NEGATIVE) 04/20/17 21:00 Urine Ketones Negative (NEGATIVE) 04/20/17 21:00 Urine Blood Negative (NEGATIVE) 04/20/17 21:00 Urine Nitrite Negative (NEGATIVE) 04/20/17 21:00 Urine Bilirubin Negative (NEGATIVE) 04/20/17 21:00 Urine Urobilinogen 2.0 mg/dL (0.2-1.0) 04/20/17 21:00 Ur Leukocyte Esterase Negative (NEGATIVE) 04/20/17 21:00 RPR Titer Nonreactive (NONREACTIVE) 04/21/17 07:40 HIV 1&2 Antibody Screen Negative 04/21/17 07:40 HIV P24 Antigen Negative 04/21/17 07:40 Assessment: 04/22/17 09:59 WITHDRAWAL SX Plan: CONTINUE DETOX INCREASE PO FLUIDS.
[2017-04-22] MEDS: NICOTINE 21 MG/24 HOURS TOPICAL PATCH TD SCH (10:06)
[2017-04-22] MEDS: PRENATAL VITAMINS W/ FOLIC ACID TABLET (FP) PO SCH (10:08)
[2017-04-22] MEDS: cloNIDine HCL 0.1 MG TABLET PO SCH ×2 (10:09→22:05)
--- NOTE | 2017-04-22 21:06 | PN ---
BHS Progress Note Note: RECEIVED NURSE CALL THAT THE PATIENT REFUSES LIBRIUM 25 MG X 1 DOSE TODAY
[2017-04-22] MEDS: chlordiazePOXIDE 5 MG CAPSULE PO SCH (22:05)
[2017-04-22] MEDS: ZOLPIDEM TARTRATE 5 MG TABLET PO PRN (22:05)
[2017-04-22] MEDS: THIAMINE HCL 100 MG TABLET (FP) PO SCH (22:05)
[2017-04-23] MEDS: chlordiazePOXIDE 5 MG CAPSULE PO SCH ×3 (05:51→18:08)
[2017-04-23] MEDS: NICOTINE 21 MG/24 HOURS TOPICAL PATCH TD SCH (10:09)
[2017-04-23] MEDS: PRENATAL VITAMINS W/ FOLIC ACID TABLET (FP) PO SCH (10:09)
[2017-04-23] MEDS: cloNIDine HCL 0.1 MG TABLET PO SCH ×2 (10:09→22:12)
--- NOTE | 2017-04-23 10:24 | PN ---
BHS Progress Note (SOAP) Subjective: ANXIETY, FATIGUE, SWEATS. Objective: 04/23/17 10:24 Vital Signs Temperature 97.4 F L 04/23/17 09:51 Pulse Rate 81 04/23/17 09:51 Respiratory Rate 16 04/23/17 09:51 Blood Pressure 111/65 04/23/17 09:51 O2 Sat by Pulse Oximetry (%) Laboratory Last Values WBC 5.9 K/mm3 (4.0-10.0) 04/21/17 07:40 RBC 3.71 M/mm3 (4.00-5.60) L 04/21/17 07:40 Hgb 11.9 GM/dL (11.7-16.9) 04/21/17 07:40 Hct 36.5 % (35.4-49) 04/21/17 07:40 MCV 98.5 fl (80-96) H 04/21/17 07:40 MCH 32.2 pg (25.7-33.7) 04/21/17 07:40 MCHC 32.7 g/dl (32.0-35.9) 04/21/17 07:40 RDW 14.2 % (11.9-15.9) 04/21/17 07:40 Plt Count 240 K/MM3 (134-434) 04/21/17 07:40 MPV 8.1 fl (7.5-11.1) 04/21/17 07:40 Sodium 139 mmol/L (136-145) 04/21/17 07:40 Potassium 3.9 mmol/L (3.5-5.1) 04/21/17 07:40 Chloride 106 mmol/L (98-107) 04/21/17 07:40 Carbon Dioxide 27 mmol/L (21-32) 04/21/17 07:40 Anion Gap 6 (8-16) L 04/21/17 07:40 BUN 14 mg/dL (7-18) D 04/21/17 07:40 Creatinine 0.8 mg/dL (0.7-1.3) 04/21/17 07:40 Creat Clearance w eGFR > 60 (>60) 04/21/17 07:40 Random Glucose 85 mg/dL (74-106) D 04/21/17 07:40 Calcium 7.9 mg/dL (8.5-10.1) L 04/21/17 07:40 Total Bilirubin 0.8 mg/dL (0.2-1.0) D 04/21/17 07:40 AST 27 U/L (15-37) D 04/21/17 07:40 ALT 51 U/L (12-78) D 04/21/17 07:40 Alkaline Phosphatase 72 U/L (45-117) 04/21/17 07:40 Total Protein 6.4 g/dl (6.4-8.2) 04/21/17 07:40 Albumin 3.2 g/dl (3.4-5.0) L 04/21/17 07:40 Urine Color Yellow 04/20/17 21:00 Urine Appearance Clear 04/20/17 21:00 Urine pH 5.0 (5.0-8.0) 04/20/17 21:00 Ur Specific [place] 1.020 (1.001-1.035) 04/20/17 21:00 Urine Protein Negative (NEGATIVE) 04/20/17 21:00 Urine Glucose (UA) Negative (NEGATIVE) 04/20/17 21:00 Urine Ketones Negative (NEGATIVE) 04/20/17 21:00 Urine Blood Negative (NEGATIVE) 04/20/17 21:00 Urine Nitrite Negative (NEGATIVE) 04/20/17 21:00 Urine Bilirubin Negative (NEGATIVE) 04/20/17 21:00 Urine Urobilinogen 2.0 mg/dL (0.2-1.0) 04/20/17 21:00 Ur Leukocyte Esterase Negative (NEGATIVE) 04/20/17 21:00 RPR Titer Nonreactive (NONREACTIVE) 04/21/17 07:40 HIV 1&2 Antibody Screen Negative 04/21/17 07:40 HIV P24 Antigen Negative 04/21/17 07:40 Assessment: 04/23/17 10:24 WITHDRAWAL SX Plan: CONTINUE DETOX
[2017-04-23] MEDS: THIAMINE HCL 100 MG TABLET (FP) PO SCH (22:12)
[2017-04-23] MEDS: ZOLPIDEM TARTRATE 5 MG TABLET PO PRN (22:12)
[2017-04-23] MEDS: chlordiazePOXIDE HCL 10 MG CAPSULE PO SCH (22:12)
[2017-04-24] MEDS: chlordiazePOXIDE HCL 10 MG CAPSULE PO SCH (04:57)
[2017-04-24 06:28] VITALS: BP 109/64; PULSE 70; TEMP 97.3
--- NOTE | 2017-04-24 12:13 | DS ---
[facility] Detox Discharge Summary Admission Date: 04/20/17 Discharge Date: 04/24/17 - History Present History: Alcohol Dependence, Cannabis Dependence, Cocaine Dependence, Opioid Dependence, Sedative Dependence Pertinent Past History: Seizure d/o PTSD - Physical Exam Results Vital Signs: Vital Signs Temperature 97.3 F L 04/24/17 06:28 Pulse Rate 70 04/24/17 06:28 Respiratory Rate 18 04/24/17 06:28 Blood Pressure 109/64 04/24/17 06:28 O2 Sat by Pulse Oximetry (%) - Treatment Hospital Course: Detox Protocol Followed, Detoxed Safely, Responded well, Discharged Condition Good, Rehab Referral Accepted Patient has Accepted a Rehab Referral to: [facility] - Medication Discharge Medications: Ambulatory Orders NK [No Known Home Medication] 04/20/17 - Diagnosis (1) Alcohol dependence with uncomplicated withdrawal Status: Acute (2) Cannabis dependence Status: Chronic (3) Cocaine dependence Status: Acute Qualifiers: Substance use status: uncomplicated Qualified Code(s): F14.20 - Cocaine dependence, uncomplicated (4) Heroin abuse Status: Acute (5) Nicotine dependence Status: Chronic Qualifiers: Nicotine product type: cigarettes Substance use status: in withdrawal Qualified Code(s): F17.213 - Nicotine dependence, cigarettes, with withdrawal (6) Opioid abuse Status: Chronic (7) Substance induced mood disorder Status: Acute (8) Substance-induced sleep disorder Status: Acute (9) Seizure Status: Chronic (10) PTSD (post-traumatic stress disorder) Status: Chronic - AMA Did Patient Leave Against Medical Advice: No
== END 2017-04-24 09:16 | disposition home or self-care (01) | DRG 773 ==
LOC: YASAS 12:57 → Y3N 17:00
PROVIDERS: ADMIT Internal Medicine; ATTEND Internal Medicine
PROC: HZ2ZZZZ Detoxification Services for Substance Abuse Treatment (ICD-10-PCS; principal; 2017-04-20)
DX: F11.10 Opioid abuse, uncomplicated (principal); F13.230 Sedative, hypnotic or anxiolytic dependence with withdrawal, uncomplicated; F10.230 Alcohol dependence with withdrawal, uncomplicated; F14.20 Cocaine dependence, uncomplicated; F12.20 Cannabis dependence, uncomplicated; F43.10 Post-traumatic stress disorder, unspecified; F19.24 Other psychoactive substance dependence with psychoactive substance-induced mood disorder; F19.282 Other psychoactive substance dependence with psychoactive substance-induced sleep disorder; G40.909 Epilepsy, unspecified, not intractable, without status epilepticus; F32.9 Major depressive disorder, single episode, unspecified; Z91.5 Personal history of self-harm; Z59.0 Homelessness
CPT/HCPCS: 36415; 80053; 81003; 85027; 86593; 87389; 93005; 93010

== ENCOUNTER 2018-06-18 12:58 | Inpatient (IN) | payer OTHER ==
[2018-06-18 16:11] VITALS: BMI 24.2
--- NOTE | 2018-06-18 18:30 | HP ---
COWS - Scale Resting Pulse: 0= VT 80 or Below Sweatin=Flushed/Facial Moisture Restless Observation: 1= Difficult to Sit Still Pupil Size: 1= Pupils >than Normal Bone or Joint Aches: 0= None Runny Nose/ Eye Tearin= Runny Nose/Eyes GI Upset > 30mins: 2= Nausea/Diarrhea Tremor Observation: 2= Slight Tremor Visible Yawning Observation: 0= None Anxiety or Irritability: 1=Feels Anxious/Irritable Goose Flesh Skin: 0=Smooth Skin COWS Score: 11 CIWA Score Nausea/Vomitin Muscle Tremors: 4-Moderate,w/Arms Extend Anxiety: 1-Mildly Anxious Agitation: 1-Slight > Activity Paroxysmal Sweats: 3 (Facial moisture) Orientation: 0-Oriented Tacttile Disturbances: 0-None Auditory Disturbances: 0-None Visual Disturbances: 0-None Headache: 0-None Present CIWA-Ar Total Score: 12 - Admission Criteria OASAS Guidelines: Admission for Medically Managed Detox: Requires at least one of the followin. CIWA greater than 12 2. Seizures within the past 24 hours 3. Delirium tremens within the past 24 hours 4. Hallucinations within the past 24 hours 5. Acute intervention needed for co occurring medical disorder 6. Acute intervention needed for co occurring psychiatric disorder 7. Severe withdrawal that cannot be handled at a lower level of care (continued vomiting, continued diarrhea, abnormal vital signs) requiring intravenous medication and/or fluids 8. Patient presents the following: CIWA greater than 12 Admission Criteria Met: Admission criteria met Admission ROS [facility] Chief Complaint: Alcohol withdrawal symptoms. Allergies/Adverse Reactions: Allergies Allergy/AdvReac Type Severity Reaction Status Date / Time No Known Allergies Allergy Verified 06/18/18 17:07 History of Present Illness: Here for alcohol detox. Alcohol use since age 17. Heroin use since age 24. Last used 3 days ago. UDS neg for opiates. Narcan kit at home. Cocaine use since age 22. Marijuana use since age 16. Nicotine use since age 16. Declines nicotine patch. Willing to consider gum. Hx blackouts. Denies overdoses. Longest length of sobriety 11 months. Denies significant PMH. MHHx: Depression, insomnia. Denies thoughts of harming self or others. No recent visit to Provider. Search Terms: Chente Lamar, 1980 Search Date: 06/18/2018 06:28:16 PM The Drug Utilization Report below displays all of the controlled substance prescriptions, if any, that your patient has filled in the last twelve months. The information displayed on this report is compiled from pharmacy submissions to the Department, and accurately reflects the information as submitted by the pharmacies. This report was requested by: Ximena Sandoval | Reference #: [id number] There are no results for the search terms that you entered. Exam Limitations: No Limitations - Ebola screening Have you traveled outside of the country in the last 21 days: No Have you had contact with anyone from an Ebola affected area: No Have you been sick,other than usual withdrawal symptoms: No Do you have a fever: No - Review of Systems Constitutional: Chills, Diaphoresis (Mild facial moisture), Changes in sleep ( Difficulty falling and staying asleep - rx'd in past w/ Seroquel and ambien) EENT: reports: Dental Problems (Missing filling. Occ (L) side tooth pain. Chews on (R) side.), Other (Runny nose.) Respiratory: reports: Shortness of Breath (When smokes.) Cardiac: reports: No Symptoms Reported GI: reports: Diarrhea (This brownish - watery), Nausea, Vomiting (yesterday) : reports: No Symptoms Reported Musculoskeletal: reports: Back Pain (Low back pain. Intermitent. Pain now is achy and is a "6". Pain r/t how lays down. Improves w/ rest.) Integumentary: reports: No Symptoms Reported Neuro: reports: Tremors Endocrine: reports: Increased Thirst Hematology: reports: No Symptoms Reported Psychiatric: reports: Judgement Intact, Orientated x3, Anxious, Depressed ( Denies thoughts of harming self or others.) Patient History - Patient Medical History Hx Anemia: No (Resolved) Hx Asthma: No (As a child. Resolved. 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; REPORTS BLACKS R/T ETOH) Hx Dementia: No Hx Diabetes: No Hx Gastrointestinal Disorders: No Hx Liver Disease: No Hx Genitourinary Disorders: No Hx Sexually Transmitted Disorders: No Hx Renal Disease (ESRD): No Hx Thyroid Disease: No Hx Human Immunodeficiency Virus (HIV): No (last 03/31 negative) Hx Hepatitis C: No Hx Depression: Yes Hx Suicide Attempt: Yes (ATTEMPTED DRUG OVERDOSE MANY YEARS AGO) Hx Bipolar Disorder: Yes Hx Schizophrenia: No - Patient Surgical History Past Surgical History: No Hx Neurologic Surgery: No Hx Cataract Extraction: No Hx Cardiac Surgery: No Hx Lung Surgery: No Hx Breast Surgery: No Hx Breast Biopsy: No Hx Abdominal Surgery: No Hx Appendectomy: No Hx Cholecystectomy: No Hx Genitourinary Surgery: No Hx Section: No Hx Orthopedic Surgery: No Anesthesia Reaction: No - PPD History Previous Implant?: Yes Documented Results: Negative w/proof Implanted On Prior [facility] Admission?: Yes Date: 03/17/17 Results: NEGATIVE PPD to be Administered?: Yes - Smoking Cessation Smoking history: Current every day smoker Have you smoked in the past 12 months: Yes Aproximately how many cigarettes per day: 10 Hx Chewing Tobacco Use: No Initiated information on smoking cessation: Yes 'Breaking Loose' booklet given: 06/18/18 - Substance & Tx. History Hx Alcohol Use: Yes Substance Use Type: Alcohol, Cocaine, Marijuana Hx Substance Use Treatment: Yes (detox, rehab) - Substances Abused Alcohol Route: Oral Frequency: Daily Amount used: 6 CANS OF 24 OUNCES OF BEER Age of first use: 17 Date of Last Use: 06/17/18 Heroin Route: Inhalation Frequency: Daily Amount used: 1-2 BAGS Age of first use: 24 Date of Last Use: 06/15/18 Cocaine Route: Inhalation Frequency: 1-2 times per week Amount used: $20 Age of first use: 22 Date of Last Use: 06/15/18 Marijuana/Hashish Route: Smoking Frequency: Daily Amount used: $20 Age of first use: 16 Date of Last Use: 06/17/18 Family Disease History - Family Disease History Family Disease History: Diabetes: Mother (), Heart Disease: Grandparent , CA: Grandparent, Respiratory: Mother, Other: Father (OPIOID DEPENDENCE, ) Admission Physical Exam BHS - Vital Signs Vital Signs: Vital Signs - 24 hr 06/18/18 16:08 Temperature 99.7 F H Pulse Rate 76 Respiratory 20 Rate Blood Pressure 141/73 - Physical General Appearance: Yes: Nourished, Appropriately Dressed, Mild Distress, Tremorous, Sweating (Increased facial moisture), Anxious HEENTM: Yes: EOMI, Hearing grossly Normal, Normal Voice, HECTOR (Pupils = 4 mm), Pharynx Normal Respiratory: Yes: Lungs Clear, Normal Breath Sounds, No Respiratory Distress Neck: Yes: No masses,lesions,Nodules, Supple Breast: Yes: Breast Exam Deferred Cardiology: Yes: Regular Rhythm, Regular Rate, S1, S2 Abdominal: Yes: Non Tender, Flat, Soft, Increased Bowel Sounds Genitourinary: Yes: Within Normal Limits Back: Yes: Normal Inspection Musculoskeletal: Yes: full range of Motion, Gait Steady Extremities: Yes: Normal Capillary Refill, Normal Range of Motion, Non-Tender, Tremors (Tremors of hands w/ arms elevated) 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 intact, Fully Oriented, Alert, Motor Strength 5/5, Normal Mood/Affect Integumentary: Yes: Normal Color, Warm Lymphatic: Yes: Within Normal Limits - Diagnostic (1) Heroin use disorder, moderate, in early remission Current Visit: Yes Status: Acute (2) Alcohol dependence with uncomplicated withdrawal Current Visit: Yes Status: Acute (3) Cocaine dependence Current Visit: Yes Status: Chronic Qualifiers: Substance use status: uncomplicated Qualified Code(s): F14.20 - Cocaine dependence, uncomplicated (4) Cannabis dependence Current Visit: Yes Status: Chronic (5) Nicotine dependence Current Visit: Yes Status: Chronic Qualifiers: Nicotine product type: cigarettes Substance use status: in withdrawal Qualified Code(s): F17.213 - Nicotine dependence, cigarettes, with withdrawal (6) Low back pain Current Visit: Yes Status: Chronic Qualifiers: Chronicity: chronic Back pain laterality: midline Sciatica presence: without sciatica Qualified Code(s): M54.5 - Low back pain; G89.29 - Other chronic pain Cleared for Admission S - Detox or Rehab [facility] Level of Care: Medically Managed Detox Regimen/Protocol: Librium [facility] Breath Alcohol Content Breath Alcohol Content: 0 Urine Drug Screen - Results Drug Screen Negative: No Urine Drug Screen Results: THC-Marijuana, KALA-Cocaine Inpatient Rehab Admission - Rehab Decision to Admit Inpatient rehab admission?: No
[2018-06-18] MEDS ORDERED: guaiFENesin 200 MG/10 ML 10 ML UNIT-DOSE CUPS PO PRN (18:58)
[2018-06-18] MEDS ORDERED: NICOTINE POLACRILEX 2 MG GUM BUC PRN (18:58)
[2018-06-18] MEDS ORDERED: BISMUTH SUBSALICYLATE 524 MG/30 ML UD PO PRN (18:58)
[2018-06-18] MEDS ORDERED: ACETAMINOPHEN 325 MG TABLET (FP) PO PRN ×2 (18:58)
[2018-06-18] MEDS ORDERED: MAGNESIUM HYDROX 2400MG/30ML ORAL SUSPENSION 30 ML CUP PO PRN (18:58)
[2018-06-18] MEDS ORDERED: MAG HYDROX/AL HYDROX/SIMETH 30 ML UNIT-DOSE CUP PO PRN (18:58)
[2018-06-18] MEDS ORDERED: MELATONIN 5 MG TABLETS PO PRN (18:58)
[2018-06-18] MEDS ORDERED: MAGNESIUM CITRATE 300 ML BOTTLE PO PRN (18:58)
[2018-06-18] MEDS ORDERED: METHOCARBAMOL 500 MG TABLET PO PRN (18:58)
[2018-06-18] MEDS ORDERED: IBUPROFEN 400 MG TABLET (FP) PO PRN (18:58)
[2018-06-18] MEDS ORDERED: chlordiazePOXIDE HCL 25 MG CAPSULE PO PRN (18:58)
[2018-06-18] MEDS ORDERED: MENTHOL/PHENOL 1 EACH UD MM PRN (18:58)
[2018-06-18] MEDS ORDERED: hydrOXYzine PAMOATE 25 MG CAPSULE (FP) PO PRN (18:58)
[2018-06-18] MEDS ORDERED: chlordiazePOXIDE 5 MG CAPSULE PO PRN (19:11)
[2018-06-18] MEDS ORDERED: cloNIDine HCL 0.1 MG TABLET PO PRN (19:22)
[2018-06-18] MEDS ORDERED: BENZOCAINE 20 % GEL TUBE MM PRN (19:24)
[2018-06-18] MEDS ORDERED: chlordiazePOXIDE HCL 25 MG CAPSULE PO ONE (19:45)
[2018-06-18] MEDS: chlordiazePOXIDE HCL 25 MG CAPSULE PO SCH (22:13)
[2018-06-18 23:07] LABS: URINE APPEARANCE SLCLOUDY; URINE BILIRUBIN NEGATIVE (<2.0 mg/dL); URINE COLOR YELLOW; URINE GLUCOSE (UA) NEGATIVE (NEGATIVE); URINE KETONE NEGATIVE (NEGATIVE); URINE LEUK ESTERASE NEGATIVE (NEGATIVE); URINE NITRITE NEGATIVE (NEGATIVE); URINE PROTEIN 1+ (NEGATIVE); URINE UROBILINOGEN 4.0 E.U/dl mg/dL (0.2-1.0)
[2018-06-18 23:18] LABS: URINE MUCUS MANY
[2018-06-19] MEDS: chlordiazePOXIDE HCL 25 MG CAPSULE PO SCH ×5 (06:23→22:16)
[2018-06-19] MEDS: THIAMINE HCL 100 MG TABLET (FP) PO SCH (10:19)
[2018-06-19] MEDS: PRENATAL VITAMINS W/ FOLIC ACID TABLET (FP) PO SCH (10:19)
[2018-06-19 10:30] LABS: HEMATOCRIT 37.2 % (35.4-49); HEMOGLOBIN 12.4 GM/dL (11.7-16.9); MCH 32.1 pg (25.7-33.7); MCHC 33.4 g/dl (32.0-35.9); MEAN CELL VOLUME 96.2 fl (80-96); MEAN PLT VOLUME 7.8 fl (7.5-11.1); PLATELET COUNT 243 K/MM3 (134-434); RBC 3.87 M/mm3 (4.00-5.60); RDW 13.4 % (11.9-15.9); WHITE BLOOD COUNT 7.7 K/mm3 (4.0-10.0)
[2018-06-19 10:43] LABS: ALBUMIN 3.7 g/dl (3.4-5.0); ALK PHOS 69 U/L (45-117); ANION GAP 8 MMOL/L (8-16); BLOOD UREA NITROGEN 13 mg/dL (7-18); CALCIUM 8.5 mg/dL (8.5-10.1); CHLORIDE 108 mmol/L (98-107); CO2 26 mmol/L (21-32); GLUCOSE,RANDOM 107 mg/dL (74-106); POTASSIUM 4.3 mmol/L (3.5-5.1); SGOT/AST 15 U/L (15-37); SGPT/ALT 16 U/L (13-61); SODIUM 142 mmol/L (136-145)
--- NOTE | 2018-06-19 14:05 | EKG ---
Test Reason : Blood Pressure : / mmHG Vent. Rate : 064 BPM Atrial Rate : 064 BPM P-R Int : 176 ms QRS Dur : 092 ms QT Int : 380 ms P-R-T Axes : 070 061 054 degrees QTc Int : 392 ms NORMAL SINUS RHYTHM NORMAL ECG WHEN COMPARED WITH ECG OF 20-APR-2017 19:37, NO SIGNIFICANT CHANGE WAS FOUND Confirmed by AJYA GILLETTE MD ([id number]) on 06/19/2018 2:04:47 PM Referred By: BRITTNEY HACKETT Confirmed By:AJAY GILLETTE MD
--- NOTE | 2018-06-19 16:34 | PN ---
[facility] CIWA - CIWA Score Nausea/Vomitin-No Nausea/No Vomiting Muscle Tremors: 2 Anxiety: 1-Mildly Anxious Agitation: 1-Slight > Activity Paroxysmal Sweats: 1-Minimal Palms Moist Orientation: 1-Uncertain about Date Tacttile Disturbances: 0-None Auditory Disturbances: 0-None Visual Disturbances: 0-None Headache: 1-Very Mild CIWA-Ar Total Score: 7 S Progress Note (SOAP) Subjective: tremor sweating poor concentration sad after lunch patient feeling better join peers in day room Objective: 06/19/18 16:35 Vital Signs Temperature 98.0 F 06/19/18 13:24 Pulse Rate 78 06/19/18 13:24 Respiratory Rate 18 06/19/18 13:24 Blood Pressure 120/75 06/19/18 13:24 O2 Sat by Pulse Oximetry (%) Laboratory Last Values WBC 7.7 K/mm3 (4.0-10.0) 06/19/18 07:00 RBC 3.87 M/mm3 (4.00-5.60) L 06/19/18 07:00 Hgb 12.4 GM/dL (11.7-16.9) 06/19/18 07:00 Hct 37.2 % (35.4-49) 06/19/18 07:00 MCV 96.2 fl (80-96) H 06/19/18 07:00 MCH 32.1 pg (25.7-33.7) 06/19/18 07:00 MCHC 33.4 g/dl (32.0-35.9) 06/19/18 07:00 RDW 13.4 % (11.9-15.9) 06/19/18 07:00 Plt Count 243 K/MM3 (134-434) 06/19/18 07:00 MPV 7.8 fl (7.5-11.1) 06/19/18 07:00 Sodium 142 mmol/L (136-145) 06/19/18 07:00 Potassium 4.3 mmol/L (3.5-5.1) 06/19/18 07:00 Chloride 108 mmol/L (98-107) H 06/19/18 07:00 Carbon Dioxide 26 mmol/L (21-32) 06/19/18 07:00 Anion Gap 8 MMOL/L (8-16) 06/19/18 07:00 BUN 13 mg/dL (7-18) 06/19/18 07:00 Creatinine 1.0 mg/dL (0.55-1.3) 06/19/18 07:00 Creat Clearance w eGFR > 60 (>60) 06/19/18 07:00 Random Glucose 107 mg/dL (74-106) H 06/19/18 07:00 Calcium 8.5 mg/dL (8.5-10.1) 06/19/18 07:00 Total Bilirubin 1.0 mg/dL (0.2-1) 06/19/18 07:00 AST 15 U/L (15-37) 06/19/18 07:00 ALT 16 U/L (13-61) 06/19/18 07:00 Alkaline Phosphatase 69 U/L (45-117) 06/19/18 07:00 Total Protein 7.0 g/dl (6.4-8.2) 06/19/18 07:00 Albumin 3.7 g/dl (3.4-5.0) 06/19/18 07:00 Urine Color Yellow 06/18/18 22:10 Urine Appearance Slcloudy 06/18/18 22:10 Urine pH 6.0 (5.0-8.0) 06/18/18 22:10 Ur Specific [place] 1.031 (1.010-1.035) 06/18/18 22:10 Urine Protein 1+ (NEGATIVE) H 06/18/18 22:10 Urine Glucose (UA) Negative (NEGATIVE) 06/18/18 22:10 Urine Ketones Negative (NEGATIVE) 06/18/18 22:10 Urine Blood Negative (NEGATIVE) 06/18/18 22:10 Urine Nitrite Negative (NEGATIVE) 06/18/18 22:10 Urine Bilirubin Negative (<2.0 mg/dL) 06/18/18 22:10 Urine Urobilinogen 4.0 e.u/dl mg/dL (0.2-1.0) 06/18/18 22:10 Ur Leukocyte Esterase Negative (NEGATIVE) 06/18/18 22:10 Urine WBC (Auto) 1 /hpf (3-5) 06/18/18 22:10 Urine RBC (Auto) <1 /hpf (0-3) 06/18/18 22:10 Urine Mucus Many 06/18/18 22:10 RPR Titer Nonreactive (NONREACTIVE) 06/19/18 07:00 lab noted Assessment: 06/19/18 16:36 alcohol withdrawal sx Plan: continue detox
[2018-06-19] MEDS: QUEtiapine FUMARATE 50 MG TABLET PO PRN (22:18)
[2018-06-20] MEDS: chlordiazePOXIDE HCL 25 MG CAPSULE PO SCH ×3 (06:24→17:19)
[2018-06-20] MEDS: THIAMINE HCL 100 MG TABLET (FP) PO SCH (10:15)
[2018-06-20] MEDS: PRENATAL VITAMINS W/ FOLIC ACID TABLET (FP) PO SCH (10:15)
[2018-06-20] MEDS ORDERED: chlordiazePOXIDE HCL 10 MG CAPSULE PO PRN (23:00)
[2018-06-20] MEDS: chlordiazePOXIDE HCL 10 MG CAPSULE PO SCH (23:05)
--- NOTE | 2018-06-21 00:22 | PN ---
[facility] CIWA - CIWA Score Nausea/Vomitin-No Nausea/No Vomiting Muscle Tremors: 3 Anxiety: 3 Agitation: 0-Normal Activity Paroxysmal Sweats: 3 Orientation: 0-Oriented Tacttile Disturbances: 3-Moderate Itch/Numb/Burn Auditory Disturbances: 0-None Visual Disturbances: 2-Mild Sensitivity Headache: 0-None Present CIWA-Ar Total Score: 14 BHS COWS - Scale Resting Pulse: 1= [place] 81-100 Sweatin= Chills/Flushing Restless Observation: 0= Sits Still Pupil Size: 0= Normal to Room Light Bone or Joint Aches: 0= None Runny Nose/ Eye Tearin= Runny Nose/Eyes GI Upset > 30mins: 0= None Tremor Observation of Outstretched Hands: 2= Slight Tremor Visible Yawning Observation: 1= 1-2x During Session Anxiety or Irritability: 2=Irritable/Anxious Goose Flesh Skin: 0=Smooth Skin COWS Score: 9 S Progress Note (SOAP) Subjective: Tremors, Sweating, Anxious. Objective: PATIENT A & O X 3, OBSERVED AMBULATING ON UNIT. IN NO ACUTE DISTRESS. 06/21/18 00:20 Vital Signs Temperature 97.4 F L 06/20/18 22:00 Pulse Rate 69 06/20/18 22:00 Respiratory Rate 18 06/20/18 22:00 Blood Pressure 115/74 06/20/18 22:00 O2 Sat by Pulse Oximetry (%) Laboratory Tests 06/18/18 06/19/18 06/19/18 22:10 07:00 07:00 WBC 7.7 RBC 3.87 L Hgb 12.4 Hct 37.2 MCV 96.2 H MCH 32.1 MCHC 33.4 RDW 13.4 Plt Count 243 MPV 7.8 Sodium 142 Potassium 4.3 Chloride 108 H Carbon Dioxide 26 Anion Gap 8 BUN 13 Creatinine 1.0 Creat Clearance w eGFR > 60 Random Glucose 107 H Calcium 8.5 Total Bilirubin 1.0 AST 15 ALT 16 Alkaline Phosphatase 69 Total Protein 7.0 Albumin 3.7 Urine Color Yellow Urine Appearance Slcloudy Urine pH 6.0 Ur Specific [place] 1.031 Urine Protein 1+ H Urine Glucose (UA) Negative Urine Ketones Negative Urine Blood Negative Urine Nitrite Negative Urine Bilirubin Negative Urine Urobilinogen 4.0 e.u/dl Ur Leukocyte Esterase Negative Urine WBC (Auto) 1 Urine RBC (Auto) <1 Urine Mucus Many RPR Titer 06/19/18 07:00 WBC RBC Hgb Hct MCV MCH MCHC RDW Plt Count MPV Sodium Potassium Chloride Carbon Dioxide Anion Gap BUN Creatinine Creat Clearance w eGFR Random Glucose Calcium Total Bilirubin AST ALT Alkaline Phosphatase Total Protein Albumin Urine Color Urine Appearance Urine pH Ur Specific [place] Urine Protein Urine Glucose (UA) Urine Ketones Urine Blood Urine Nitrite Urine Bilirubin Urine Urobilinogen Ur Leukocyte Esterase Urine WBC (Auto) Urine RBC (Auto) Urine Mucus RPR Titer Nonreactive LABS NOTED. Assessment: 06/21/18 00:21 WITHDRAWAL SYMPTOMS. Plan: CONTINUE DETOX.
[2018-06-21] MEDS: chlordiazePOXIDE HCL 10 MG CAPSULE PO SCH ×4 (06:10→22:38)
[2018-06-21] MEDS: THIAMINE HCL 100 MG TABLET (FP) PO SCH (10:11)
[2018-06-21] MEDS: PRENATAL VITAMINS W/ FOLIC ACID TABLET (FP) PO SCH (10:11)
--- NOTE | 2018-06-21 15:08 | PN ---
[facility] Progress Note (SOAP) Subjective: Tremors, Sweating. Objective: PATIENT A & O X 3, OBSERVED AMBULATING ON UNIT. IN NO ACUTE DISTRESS. 06/21/18 15:09 Vital Signs Temperature 98.3 F 06/21/18 13:49 Pulse Rate 67 06/21/18 13:49 Respiratory Rate 18 06/21/18 13:49 Blood Pressure 111/70 06/21/18 13:49 O2 Sat by Pulse Oximetry (%) Laboratory Tests 06/18/18 06/19/18 06/19/18 22:10 07:00 07:00 WBC 7.7 RBC 3.87 L Hgb 12.4 Hct 37.2 MCV 96.2 H MCH 32.1 MCHC 33.4 RDW 13.4 Plt Count 243 MPV 7.8 Sodium 142 Potassium 4.3 Chloride 108 H Carbon Dioxide 26 Anion Gap 8 BUN 13 Creatinine 1.0 Creat Clearance w eGFR > 60 Random Glucose 107 H Calcium 8.5 Total Bilirubin 1.0 AST 15 ALT 16 Alkaline Phosphatase 69 Total Protein 7.0 Albumin 3.7 Urine Color Yellow Urine Appearance Slcloudy Urine pH 6.0 Ur Specific [place] 1.031 Urine Protein 1+ H Urine Glucose (UA) Negative Urine Ketones Negative Urine Blood Negative Urine Nitrite Negative Urine Bilirubin Negative Urine Urobilinogen 4.0 e.u/dl Ur Leukocyte Esterase Negative Urine WBC (Auto) 1 Urine RBC (Auto) <1 Urine Mucus Many RPR Titer 06/19/18 07:00 WBC RBC Hgb Hct MCV MCH MCHC RDW Plt Count MPV Sodium Potassium Chloride Carbon Dioxide Anion Gap BUN Creatinine Creat Clearance w eGFR Random Glucose Calcium Total Bilirubin AST ALT Alkaline Phosphatase Total Protein Albumin Urine Color Urine Appearance Urine pH Ur Specific [place] Urine Protein Urine Glucose (UA) Urine Ketones Urine Blood Urine Nitrite Urine Bilirubin Urine Urobilinogen Ur Leukocyte Esterase Urine WBC (Auto) Urine RBC (Auto) Urine Mucus RPR Titer Nonreactive LABS NOTED. Assessment: 06/21/18 15:09 WITHDRAWAL SYMPTOMS. Plan: CONTINUE DETOX.
[2018-06-21] MEDS: QUEtiapine FUMARATE 50 MG TABLET PO PRN (22:38)
[2018-06-22 09:31] VITALS: BP 111/70; PULSE 69; TEMP 97.8
[2018-06-22] MEDS: PRENATAL VITAMINS W/ FOLIC ACID TABLET (FP) PO SCH (10:37)
[2018-06-22] MEDS: THIAMINE HCL 100 MG TABLET (FP) PO SCH (10:37)
[2018-06-22] MEDS: chlordiazePOXIDE HCL 10 MG CAPSULE PO SCH (10:38)
--- NOTE | 2018-06-22 11:32 | DS ---
[facility] Detox Discharge Summary Admission Date: 06/18/18 Discharge Date: 06/22/18 - History Present History: Alcohol Dependence Additional Comments: 38 years old male admitted on 06/18/18 for alcohol withdrawal stabilization completed detox regimen aftercare aci - Physical Exam Results Vital Signs: Vital Signs Temperature 97.8 F 06/22/18 09:30 Pulse Rate 69 06/22/18 09:30 Respiratory Rate 18 06/22/18 09:30 Blood Pressure 111/70 06/22/18 09:30 O2 Sat by Pulse Oximetry (%) Pertinent Admission Physical Exam Findings: alcohol withdrawal sx Laboratory Last Values WBC 7.7 K/mm3 (4.0-10.0) 06/19/18 07:00 RBC 3.87 M/mm3 (4.00-5.60) L 06/19/18 07:00 Hgb 12.4 GM/dL (11.7-16.9) 06/19/18 07:00 Hct 37.2 % (35.4-49) 06/19/18 07:00 MCV 96.2 fl (80-96) H 06/19/18 07:00 MCH 32.1 pg (25.7-33.7) 06/19/18 07:00 MCHC 33.4 g/dl (32.0-35.9) 06/19/18 07:00 RDW 13.4 % (11.9-15.9) 06/19/18 07:00 Plt Count 243 K/MM3 (134-434) 06/19/18 07:00 MPV 7.8 fl (7.5-11.1) 06/19/18 07:00 Sodium 142 mmol/L (136-145) 06/19/18 07:00 Potassium 4.3 mmol/L (3.5-5.1) 06/19/18 07:00 Chloride 108 mmol/L (98-107) H 06/19/18 07:00 Carbon Dioxide 26 mmol/L (21-32) 06/19/18 07:00 Anion Gap 8 MMOL/L (8-16) 06/19/18 07:00 BUN 13 mg/dL (7-18) 06/19/18 07:00 Creatinine 1.0 mg/dL (0.55-1.3) 06/19/18 07:00 Creat Clearance w eGFR > 60 (>60) 06/19/18 07:00 Random Glucose 107 mg/dL (74-106) H 06/19/18 07:00 Calcium 8.5 mg/dL (8.5-10.1) 06/19/18 07:00 Total Bilirubin 1.0 mg/dL (0.2-1) 06/19/18 07:00 AST 15 U/L (15-37) 06/19/18 07:00 ALT 16 U/L (13-61) 06/19/18 07:00 Alkaline Phosphatase 69 U/L (45-117) 06/19/18 07:00 Total Protein 7.0 g/dl (6.4-8.2) 06/19/18 07:00 Albumin 3.7 g/dl (3.4-5.0) 06/19/18 07:00 Urine Color Yellow 06/18/18 22:10 Urine Appearance Slcloudy 06/18/18 22:10 Urine pH 6.0 (5.0-8.0) 06/18/18 22:10 Ur Specific [place] 1.031 (1.010-1.035) 06/18/18 22:10 Urine Protein 1+ (NEGATIVE) H 06/18/18 22:10 Urine Glucose (UA) Negative (NEGATIVE) 06/18/18 22:10 Urine Ketones Negative (NEGATIVE) 06/18/18 22:10 Urine Blood Negative (NEGATIVE) 06/18/18 22:10 Urine Nitrite Negative (NEGATIVE) 06/18/18 22:10 Urine Bilirubin Negative (<2.0 mg/dL) 06/18/18 22:10 Urine Urobilinogen 4.0 e.u/dl mg/dL (0.2-1.0) 06/18/18 22:10 Ur Leukocyte Esterase Negative (NEGATIVE) 06/18/18 22:10 Urine WBC (Auto) 1 /hpf (3-5) 06/18/18 22:10 Urine RBC (Auto) <1 /hpf (0-3) 06/18/18 22:10 Urine Mucus Many 06/18/18 22:10 RPR Titer Nonreactive (NONREACTIVE) 06/19/18 07:00 lab noted - Treatment Hospital Course: Detox Protocol Followed, Detoxed Safely, Responded well, Discharged Condition Good, Rehab Referral Accepted Patient has Accepted a Rehab Referral to: [facility] - Medication Discharge Medications: Ambulatory Orders NK [No Known Home Medication] 04/20/17 - Diagnosis (1) Alcohol dependence with uncomplicated withdrawal Current Visit: Yes Status: Acute (2) Nicotine dependence Current Visit: Yes Status: Acute Qualifiers: Nicotine product type: cigarettes Substance use status: in withdrawal Qualified Code(s): F17.213 - Nicotine dependence, cigarettes, with withdrawal (3) Substance induced mood disorder Current Visit: Yes Status: Suspected - AMA Did Patient Leave Against Medical Advice: No
== END 2018-06-22 14:26 | disposition home or self-care (01) | DRG 773 ==
LOC: YASAS 12:58 → Y3N 19:23 → UNDODISIN 06-22 14:26
PROVIDERS: ADMIT Surgery; ATTEND Surgery
PROC: HZ2ZZZZ Detoxification Services for Substance Abuse Treatment (ICD-10-PCS; principal; 2018-06-18)
DX: F10.230 Alcohol dependence with withdrawal, uncomplicated (principal); F14.20 Cocaine dependence, uncomplicated; F12.20 Cannabis dependence, uncomplicated; F11.21 Opioid dependence, in remission; F17.210 Nicotine dependence, cigarettes, uncomplicated; F19.24 Other psychoactive substance dependence with psychoactive substance-induced mood disorder; M54.5 Low back pain; G89.29 Other chronic pain; Z86.69 Personal history of other diseases of the nervous system and sense organs; Z91.5 Personal history of self-harm
CPT/HCPCS: 36415; 80053; 81003; 81015; 85027; 86593; 93005; 93010

== ENCOUNTER 2020-09-01 18:56 | Inpatient (IN) | payer OTHER ==
[2020-09-01] MEDS ORDERED: ONDANSETRON *ODT* 4 MG TABLET SL PRN (19:51)
[2020-09-01] MEDS ORDERED: METHADONE HCL 10 MG TABLET (FOR DETOX USE ONLY) PO ONE (19:51)
[2020-09-01] MEDS ORDERED: MAGNESIUM CITRATE 300 ML BOTTLE PO PRN (19:51)
[2020-09-01] MEDS ORDERED: MENTHOL/PHENOL 1 EACH UD MM PRN (19:51)
[2020-09-01] MEDS ORDERED: NICOTINE POLACRILEX 2 MG GUM BUC PRN (19:51)
[2020-09-01] MEDS ORDERED: ACETAMINOPHEN 325 MG TABLET (FP) PO PRN ×2 (19:51)
[2020-09-01] MEDS ORDERED: METHOCARBAMOL 500 MG TABLET PO PRN (19:51)
[2020-09-01] MEDS ORDERED: IBUPROFEN 400 MG TABLET (FP) PO PRN (19:51)
[2020-09-01] MEDS ORDERED: MAGNESIUM HYDROX 2400MG/30ML ORAL SUSPENSION 30 ML CUP PO PRN (19:51)
[2020-09-01] MEDS ORDERED: cloNIDine HCL 0.1 MG TABLET PO PRN (19:51)
[2020-09-01] MEDS ORDERED: BISMUTH SUBSALICYLATE 524 MG/30 ML PO PRN (19:51)
[2020-09-01] MEDS ORDERED: MAG HYDROX/AL HYDROX/SIMETH 30 ML UNIT-DOSE CUP PO PRN (19:51)
[2020-09-01 19:56] VITALS: BMI 24.2
[2020-09-01] MEDS: hydrOXYzine PAMOATE 25 MG CAPSULE (FP) PO SCH (22:57)
[2020-09-01] MEDS: MELATONIN 5 MG TABLETS PO SCH (23:01)
[2020-09-01] MEDS: THIAMINE HCL 100 MG TABLET (FP) PO SCH (23:06)
[2020-09-02] MEDS: hydrOXYzine PAMOATE 25 MG CAPSULE (FP) PO SCH ×5 (05:43→23:05)
[2020-09-02] MEDS ORDERED: METHADONE HCL 5 MG TABLET (FOR DETOX USE ONLY) ONE (09:24)
[2020-09-02] MEDS ORDERED: METHADONE HCL 10 MG TABLET (FOR DETOX USE ONLY) ONE (09:24)
[2020-09-02] MEDS ORDERED: METHADONE (DETOX) 20 MG, METHADONE (DETOX) 5 MG PO ONE (10:00)
[2020-09-02 10:08] LABS: HEMATOCRIT 36.6 % (35.4-49); HEMOGLOBIN 12.1 GM/dL (11.7-16.9); MCH 30.9 pg (25.7-33.7); MCHC 33.2 g/dl (32.0-35.9); MEAN PLT VOLUME 8.3 fl (7.5-11.1); PLATELET COUNT 255 K/MM3 (134-434); RBC 3.93 M/mm3 (4.00-5.60); RDW 13.4 % (11.9-15.9); WHITE BLOOD COUNT 7.2 K/mm3 (4.0-10.0)
[2020-09-02 10:25] LABS: ALBUMIN 3.7 g/dl (3.4-5.0); BLOOD UREA NITROGEN 13.6 mg/dL (7-18)
[2020-09-02 10:28] LABS: CREATININE 0.8 mg/dL (0.55-1.3)
[2020-09-02 10:29] LABS: BILIRUBIN,TOTAL 0.8 mg/dL (0.2-1); TOT PROT 7.1 g/dl (6.4-8.2)
[2020-09-02] MEDS: PRENATAL VITAMINS W/ FOLIC ACID TABLET (FP) PO SCH (10:46)
[2020-09-02] MEDS: MELATONIN 5 MG TABLETS PO SCH (23:04)
[2020-09-02] MEDS: THIAMINE HCL 100 MG TABLET (FP) PO SCH (23:05)
[2020-09-02] MEDS: QUEtiapine FUMARATE 50 MG TABLET PO SCH (23:05)
[2020-09-03] MEDS: hydrOXYzine PAMOATE 25 MG CAPSULE (FP) PO SCH ×2 (07:22→10:46)
[2020-09-03] MEDS ORDERED: METHADONE HCL 10 MG TABLET (FOR DETOX USE ONLY) PO ONE (10:00)
[2020-09-03] MEDS: PRENATAL VITAMINS W/ FOLIC ACID TABLET (FP) PO SCH (10:46)
[2020-09-03] MEDS ORDERED: hydrOXYzine PAMOATE 25 MG CAPSULE (FP) PO PRN (11:47)
[2020-09-03] MEDS: QUEtiapine FUMARATE 50 MG TABLET PO SCH (23:05)
[2020-09-03] MEDS: THIAMINE HCL 100 MG TABLET (FP) PO SCH (23:05)
[2020-09-03] MEDS: MELATONIN 5 MG TABLETS PO SCH (23:05)
[2020-09-04] MEDS ORDERED: METHADONE HCL 5 MG TABLET (FOR DETOX USE ONLY) ONE (08:54)
[2020-09-04] MEDS ORDERED: METHADONE HCL 10 MG TABLET (FOR DETOX USE ONLY) ONE (08:54)
[2020-09-04] MEDS ORDERED: METHADONE (DETOX) 10 MG, METHADONE (DETOX) 5 MG PO ONE (10:00)
[2020-09-04] MEDS: PRENATAL VITAMINS W/ FOLIC ACID TABLET (FP) PO SCH (10:39)
[2020-09-04 14:06] LABS: SARS-CoV-2 NAA Not Detected (Not Detected)
[2020-09-04] MEDS: MELATONIN 5 MG TABLETS PO SCH (22:14)
[2020-09-04] MEDS: QUEtiapine FUMARATE 50 MG TABLET PO SCH (22:14)
[2020-09-04] MEDS: THIAMINE HCL 100 MG TABLET (FP) PO SCH (22:14)
[2020-09-05] MEDS ORDERED: METHADONE HCL 10 MG TABLET (FOR DETOX USE ONLY) PO ONE (10:00)
[2020-09-05] MEDS: PRENATAL VITAMINS W/ FOLIC ACID TABLET (FP) PO SCH (10:42)
[2020-09-05] MEDS: MELATONIN 5 MG TABLETS PO SCH (22:16)
[2020-09-05] MEDS: QUEtiapine FUMARATE 50 MG TABLET PO SCH (22:16)
[2020-09-05] MEDS: THIAMINE HCL 100 MG TABLET (FP) PO SCH (22:16)
[2020-09-06] MEDS ORDERED: METHADONE HCL 5 MG TABLET (FOR DETOX USE ONLY) PO ONE (06:00)
[2020-09-06] MEDS: PRENATAL VITAMINS W/ FOLIC ACID TABLET (FP) PO SCH (09:22)
[2020-09-06 09:36] VITALS: BP 132/80; PULSE 90; TEMP 97.1
== END 2020-09-06 12:26 | disposition other institution (70) | DRG 773 ==
LOC: YASAS 18:56 → Y3N 20:19
PROVIDERS: ADMIT Allergy & Immunology; ATTEND Allergy & Immunology
PROC: HZ2ZZZZ Detoxification Services for Substance Abuse Treatment (ICD-10-PCS; principal; 2020-09-01)
DX: F11.23 Opioid dependence with withdrawal (principal); F12.20 Cannabis dependence, uncomplicated; F17.210 Nicotine dependence, cigarettes, uncomplicated; F31.9 Bipolar disorder, unspecified; F19.24 Other psychoactive substance dependence with psychoactive substance-induced mood disorder; F43.10 Post-traumatic stress disorder, unspecified; G47.00 Insomnia, unspecified; M54.5 Low back pain; G89.29 Other chronic pain; Z56.0 Unemployment, unspecified; Z59.0 Homelessness; Z91.19 Patient's noncompliance with other medical treatment and regimen
CPT/HCPCS: 36415; 80053; 82310; 85027; 86780; C9803; U0003; U0005

== ENCOUNTER 2020-09-06 12:36 | Inpatient (IN) | payer OTHER ==
[2020-09-06] MEDS ORDERED: MAGNESIUM HYDROX 2400MG/30ML ORAL SUSPENSION 30 ML CUP PO PRN (14:11)
[2020-09-06] MEDS ORDERED: ACETAMINOPHEN 325 MG TABLET (FP) PO PRN (14:11)
[2020-09-06] MEDS ORDERED: MAGNESIUM CITRATE 300 ML BOTTLE PO PRN (14:11)
[2020-09-06] MEDS ORDERED: MAG HYDROX/AL HYDROX/SIMETH 30 ML UNIT-DOSE CUP PO PRN (14:11)
[2020-09-06] MEDS ORDERED: hydrOXYzine PAMOATE 25 MG CAPSULE (FP) PO PRN (14:11)
[2020-09-06] MEDS ORDERED: LOPERAMIDE HCL 2 MG CAPSULE PO PRN (14:11)
[2020-09-06] MEDS ORDERED: NICOTINE POLACRILEX 2 MG GUM BUC PRN (14:11)
[2020-09-06] MEDS ORDERED: MENTHOL/PHENOL 1 EACH UD MM PRN (14:11)
[2020-09-06] MEDS ORDERED: guaiFENesin 200 MG/10 ML 10 ML UNIT-DOSE CUPS PO PRN (14:11)
[2020-09-06] MEDS ORDERED: P-EPHED 60MG/TRIPROLIDI 2.5MG TABLET PO PRN (14:11)
[2020-09-06] MEDS ORDERED: TUBERCULIN PPD 5 TU/0.1ML VIAL ID ONE (15:37)
[2020-09-06] MEDS: MELATONIN 5 MG TABLETS PO SCH (21:40)
[2020-09-06] MEDS: QUEtiapine FUMARATE 50 MG TABLET PO SCH (21:41)
[2020-09-06] MEDS: THIAMINE HCL 100 MG TABLET (FP) PO SCH (21:42)
[2020-09-07] MEDS: NICOTINE 14 MG/24 HOURS TOPICAL PATCH TD SCH (10:16)
[2020-09-07] MEDS: PRENATAL VITAMINS W/ FOLIC ACID TABLET (FP) PO SCH (10:16)
[2020-09-07] MEDS: QUEtiapine FUMARATE 50 MG TABLET PO SCH (21:34)
[2020-09-07] MEDS: MELATONIN 5 MG TABLETS PO SCH (21:34)
[2020-09-07] MEDS: THIAMINE HCL 100 MG TABLET (FP) PO SCH (21:34)
[2020-09-08] MEDS: NICOTINE 14 MG/24 HOURS TOPICAL PATCH TD SCH (10:09)
[2020-09-08] MEDS: PRENATAL VITAMINS W/ FOLIC ACID TABLET (FP) PO SCH (10:09)
[2020-09-08] MEDS: THIAMINE HCL 100 MG TABLET (FP) PO SCH (21:31)
[2020-09-08] MEDS: QUEtiapine FUMARATE 50 MG TABLET PO SCH (21:31)
[2020-09-08] MEDS: MELATONIN 5 MG TABLETS PO SCH (21:31)
[2020-09-09] MEDS: NICOTINE 14 MG/24 HOURS TOPICAL PATCH TD SCH (10:14)
[2020-09-09] MEDS: PRENATAL VITAMINS W/ FOLIC ACID TABLET (FP) PO SCH (10:14)
[2020-09-09] MEDS: MELATONIN 5 MG TABLETS PO SCH (21:43)
[2020-09-09] MEDS: THIAMINE HCL 100 MG TABLET (FP) PO SCH (21:43)
[2020-09-09] MEDS: QUEtiapine FUMARATE 50 MG TABLET PO SCH (21:43)
[2020-09-10] MEDS: PRENATAL VITAMINS W/ FOLIC ACID TABLET (FP) PO SCH (10:13)
[2020-09-10] MEDS: NICOTINE 14 MG/24 HOURS TOPICAL PATCH TD SCH (10:13)
[2020-09-10] MEDS: QUEtiapine FUMARATE 50 MG TABLET PO SCH (21:23)
[2020-09-10] MEDS: MELATONIN 5 MG TABLETS PO SCH (21:23)
[2020-09-10] MEDS: THIAMINE HCL 100 MG TABLET (FP) PO SCH (21:23)
[2020-09-11] MEDS: PRENATAL VITAMINS W/ FOLIC ACID TABLET (FP) PO SCH (10:04)
[2020-09-11] MEDS: NICOTINE 14 MG/24 HOURS TOPICAL PATCH TD SCH (10:04)
[2020-09-11] MEDS: MELATONIN 5 MG TABLETS PO SCH (21:35)
[2020-09-11] MEDS: QUEtiapine FUMARATE 50 MG TABLET PO SCH (21:35)
[2020-09-11] MEDS: THIAMINE HCL 100 MG TABLET (FP) PO SCH (21:35)
[2020-09-12] MEDS: PRENATAL VITAMINS W/ FOLIC ACID TABLET (FP) PO SCH (10:21)
[2020-09-12] MEDS: NICOTINE 14 MG/24 HOURS TOPICAL PATCH TD SCH (10:21)
[2020-09-12] MEDS: THIAMINE HCL 100 MG TABLET (FP) PO SCH (21:38)
[2020-09-12] MEDS: MELATONIN 5 MG TABLETS PO SCH (21:38)
[2020-09-12] MEDS: QUEtiapine FUMARATE 50 MG TABLET PO SCH (21:38)
[2020-09-13 08:06] LABS: SARS-CoV-2 NAA Not Detected (Not Detected)
[2020-09-13] MEDS: NICOTINE 14 MG/24 HOURS TOPICAL PATCH TD SCH (10:08)
[2020-09-13] MEDS: PRENATAL VITAMINS W/ FOLIC ACID TABLET (FP) PO SCH (10:08)
[2020-09-13] MEDS: MELATONIN 5 MG TABLETS PO SCH (21:28)
[2020-09-13] MEDS: QUEtiapine FUMARATE 50 MG TABLET PO SCH (21:28)
[2020-09-13] MEDS: THIAMINE HCL 100 MG TABLET (FP) PO SCH (21:28)
[2020-09-14] MEDS: NICOTINE 14 MG/24 HOURS TOPICAL PATCH TD SCH (09:50)
[2020-09-14] MEDS: PRENATAL VITAMINS W/ FOLIC ACID TABLET (FP) PO SCH (09:50)
[2020-09-14] MEDS: IBUPROFEN 400 MG TABLET (FP) PO PRN (14:39)
[2020-09-14] MEDS: THIAMINE HCL 100 MG TABLET (FP) PO SCH (21:33)
[2020-09-14] MEDS: MELATONIN 5 MG TABLETS PO SCH (21:33)
[2020-09-14] MEDS: QUEtiapine FUMARATE 50 MG TABLET PO SCH (21:33)
[2020-09-15] MEDS: PRENATAL VITAMINS W/ FOLIC ACID TABLET (FP) PO SCH (10:08)
[2020-09-15] MEDS: NICOTINE 14 MG/24 HOURS TOPICAL PATCH TD SCH (10:08)
[2020-09-15] MEDS: IBUPROFEN 400 MG TABLET (FP) PO PRN (10:09)
[2020-09-15] MEDS: METHYL SALICYLATE/MENTHOL OINT 30 GM TUBE TP SCH ×2 (10:10→22:18)
[2020-09-15] MEDS: QUEtiapine FUMARATE 50 MG TABLET PO SCH (21:37)
[2020-09-15] MEDS: THIAMINE HCL 100 MG TABLET (FP) PO SCH (21:37)
[2020-09-15] MEDS: MELATONIN 5 MG TABLETS PO SCH (21:37)
[2020-09-16] MEDS: METHYL SALICYLATE/MENTHOL OINT 30 GM TUBE TP SCH ×2 (10:05→22:15)
[2020-09-16] MEDS: PRENATAL VITAMINS W/ FOLIC ACID TABLET (FP) PO SCH (10:05)
[2020-09-16] MEDS: NICOTINE 14 MG/24 HOURS TOPICAL PATCH TD SCH (10:06)
[2020-09-16] MEDS ORDERED: ASPIRIN 81 MG CHEWABLE TABLETS PO ONE (15:20)
[2020-09-16] MEDS: QUEtiapine FUMARATE 50 MG TABLET PO SCH (22:16)
[2020-09-16] MEDS: THIAMINE HCL 100 MG TABLET (FP) PO SCH (22:16)
[2020-09-16] MEDS: MELATONIN 5 MG TABLETS PO SCH (22:16)
[2020-09-16] MEDS ORDERED: PT OWN MED DRAWER 7, Y5N ONE (22:35)
[2020-09-16] MEDS: IBUPROFEN 400 MG TABLET (FP) PO PRN (22:35)
[2020-09-17 06:55] VITALS: TEMP 97.3
[2020-09-17] MEDS: PRENATAL VITAMINS W/ FOLIC ACID TABLET (FP) PO SCH (10:18)
[2020-09-17] MEDS: NICOTINE 14 MG/24 HOURS TOPICAL PATCH TD SCH (10:18)
[2020-09-17] MEDS: METHYL SALICYLATE/MENTHOL OINT 30 GM TUBE TP SCH ×2 (10:18→21:31)
[2020-09-17] MEDS ORDERED: PT OWN MED DRAWER 7, Y5N ONE (10:50)
[2020-09-17] MEDS: IBUPROFEN 400 MG TABLET (FP) PO PRN (10:51)
[2020-09-17] MEDS: QUEtiapine FUMARATE 50 MG TABLET PO SCH (21:30)
[2020-09-17] MEDS: THIAMINE HCL 100 MG TABLET (FP) PO SCH (21:30)
[2020-09-18] MEDS: NICOTINE 14 MG/24 HOURS TOPICAL PATCH TD SCH (10:19)
[2020-09-18] MEDS: METHYL SALICYLATE/MENTHOL OINT 30 GM TUBE TP SCH ×2 (10:19→21:31)
[2020-09-18] MEDS: PRENATAL VITAMINS W/ FOLIC ACID TABLET (FP) PO SCH (10:19)
[2020-09-18] MEDS: THIAMINE HCL 100 MG TABLET (FP) PO SCH (21:30)
[2020-09-18] MEDS: QUEtiapine FUMARATE 50 MG TABLET PO SCH (21:31)
[2020-09-19] MEDS: PRENATAL VITAMINS W/ FOLIC ACID TABLET (FP) PO SCH (10:09)
[2020-09-19] MEDS: NICOTINE 14 MG/24 HOURS TOPICAL PATCH TD SCH (10:09)
[2020-09-19] MEDS: METHYL SALICYLATE/MENTHOL OINT 30 GM TUBE TP SCH ×2 (10:13→22:29)
[2020-09-19] MEDS: THIAMINE HCL 100 MG TABLET (FP) PO SCH (21:34)
[2020-09-19] MEDS: QUEtiapine FUMARATE 50 MG TABLET PO SCH (21:34)
[2020-09-20 06:51] VITALS: BP 146/79; PULSE 82
== END 2020-09-20 09:50 | disposition home or self-care (01) | DRG 772 ==
LOC: YASAS 12:36 → Y5N 12:37
PROVIDERS: ADMIT Allergy & Immunology; ATTEND Allergy & Immunology
PROC: HZ42ZZZ Group Counseling for Substance Abuse Treatment, Cognitive-Behavioral (ICD-10-PCS; principal; 2020-09-06)
DX: F11.20 Opioid dependence, uncomplicated (principal); F14.20 Cocaine dependence, uncomplicated; F17.210 Nicotine dependence, cigarettes, uncomplicated; F19.282 Other psychoactive substance dependence with psychoactive substance-induced sleep disorder; F19.24 Other psychoactive substance dependence with psychoactive substance-induced mood disorder; F31.9 Bipolar disorder, unspecified; F43.10 Post-traumatic stress disorder, unspecified; G47.00 Insomnia, unspecified; Z56.0 Unemployment, unspecified; Z59.0 Homelessness
CPT/HCPCS: 93005; 93010; C9803; U0003; U0005

== ENCOUNTER 2021-03-28 14:25 | Inpatient (IN) | payer OTHER ==
[2021-03-28] MEDS ORDERED: IBUPROFEN 400 MG TABLET (FP) PO PRN (14:52)
[2021-03-28] MEDS ORDERED: ACETAMINOPHEN 325 MG TABLET (FP) PO PRN ×2 (14:52)
[2021-03-28] MEDS ORDERED: MAG HYDROX/AL HYDROX/SIMETH 30 ML UNIT-DOSE CUP PO PRN (14:52)
[2021-03-28] MEDS ORDERED: BISMUTH SUBSALICYLATE 524 MG/30 ML PO PRN (14:52)
[2021-03-28] MEDS ORDERED: cloNIDine HCL 0.1 MG TABLET PO PRN (14:52)
[2021-03-28] MEDS ORDERED: MAGNESIUM HYDROX 2400MG/30ML ORAL SUSPENSION 30 ML CUP PO PRN (14:52)
[2021-03-28] MEDS ORDERED: MAGNESIUM CITRATE 300 ML BOTTLE PO PRN (14:52)
[2021-03-28] MEDS ORDERED: methaDONE HCL 10 MG TABLET (FOR DETOX USE ONLY) PO ONE (14:52)
[2021-03-28] MEDS ORDERED: MENTHOL/PHENOL 1 EACH UD MM PRN (14:52)
[2021-03-28] MEDS ORDERED: NICOTINE 10 MG CARTRIDGE (INHALER) IH PRN (14:52)
[2021-03-28] MEDS ORDERED: ONDANSETRON *ODT* 4 MG TABLET SL PRN (14:52)
[2021-03-28] MEDS ORDERED: METHOCARBAMOL 500 MG TABLET PO PRN (14:52)
[2021-03-28 15:11] VITALS: BMI 23.8
[2021-03-28] MEDS: hydrOXYzine PAMOATE 25 MG CAPSULE (FP) PO SCH ×2 (17:54→22:25)
[2021-03-28] MEDS: PRENATAL VITAMINS W/ FOLIC ACID TABLET (FP) PO SCH (17:54)
[2021-03-28] MEDS ORDERED: MELATONIN 5 MG TABLETS PO SCH (22:00)
[2021-03-28] MEDS: THIAMINE HCL 100 MG TABLET (FP) PO SCH (22:25)
[2021-03-29] MEDS: hydrOXYzine PAMOATE 25 MG CAPSULE (FP) PO SCH ×5 (07:07→22:48)
[2021-03-29] MEDS ORDERED: methaDONE HCL 10 MG TABLET (FOR DETOX USE ONLY) ONE (09:13)
[2021-03-29] MEDS: PRENATAL VITAMINS W/ FOLIC ACID TABLET (FP) PO SCH (10:36)
[2021-03-29 10:48] LABS: CALCIUM 8.9 mg/dL (8.5-10.1)
[2021-03-29 10:49] LABS: BLOOD UREA NITROGEN 13.2 mg/dL (7-18)
[2021-03-29 10:52] LABS: CREATININE 0.8 mg/dL (0.55-1.3)
[2021-03-29 10:53] LABS: HEMATOCRIT 35.9 % (35.4-49); MCH 31.3 pg (25.7-33.7); MCHC 33.3 g/dl (32.0-35.9); MEAN CELL VOLUME 93.8 fl (80-96); MEAN PLT VOLUME 7.6 fl (7.5-11.1); PLATELET COUNT 380 10^3/uL (134-434); RBC 3.82 M/mm3 (4.00-5.60); RDW 14.7 % (11.9-15.9); WHITE BLOOD COUNT 6.8 K/mm3 (4.0-10.0)
[2021-03-29 10:55] LABS: TOT PROT 7.5 g/dl (6.4-8.2)
[2021-03-29] MEDS: THIAMINE HCL 100 MG TABLET (FP) PO SCH (22:48)
[2021-03-29] MEDS: QUEtiapine FUMARATE 100 MG TABLET (FP) PO SCH (22:48)
[2021-03-30] MEDS: hydrOXYzine PAMOATE 25 MG CAPSULE (FP) PO SCH ×5 (06:47→22:29)
[2021-03-30] MEDS ORDERED: methaDONE HCL 10 MG TABLET (FOR DETOX USE ONLY) PO ONE (10:00)
[2021-03-30] MEDS: PRENATAL VITAMINS W/ FOLIC ACID TABLET (FP) PO SCH (10:09)
[2021-03-30] MEDS: THIAMINE HCL 100 MG TABLET (FP) PO SCH (22:29)
[2021-03-30] MEDS: QUEtiapine FUMARATE 100 MG TABLET (FP) PO SCH (22:29)
[2021-03-31] MEDS: hydrOXYzine PAMOATE 25 MG CAPSULE (FP) PO SCH ×5 (06:16→22:21)
[2021-03-31] MEDS ORDERED: methaDONE HCL 10 MG TABLET (FOR DETOX USE ONLY) ONE (09:27)
[2021-03-31] MEDS: PRENATAL VITAMINS W/ FOLIC ACID TABLET (FP) PO SCH (10:24)
[2021-03-31] MEDS: THIAMINE HCL 100 MG TABLET (FP) PO SCH (22:20)
[2021-03-31] MEDS: QUEtiapine FUMARATE 100 MG TABLET (FP) PO SCH (22:20)
[2021-04-01] MEDS: hydrOXYzine PAMOATE 25 MG CAPSULE (FP) PO SCH ×5 (06:48→22:36)
[2021-04-01] MEDS ORDERED: methaDONE HCL 10 MG TABLET (FOR DETOX USE ONLY) PO ONE (10:00)
[2021-04-01] MEDS: PRENATAL VITAMINS W/ FOLIC ACID TABLET (FP) PO SCH (10:20)
[2021-04-01] MEDS: QUEtiapine FUMARATE 100 MG TABLET (FP) PO SCH (22:36)
[2021-04-01] MEDS: THIAMINE HCL 100 MG TABLET (FP) PO SCH (22:36)
[2021-04-02] MEDS: PRENATAL VITAMINS W/ FOLIC ACID TABLET (FP) PO SCH (11:08)
[2021-04-02] MEDS: hydrOXYzine PAMOATE 25 MG CAPSULE (FP) PO SCH ×4 (12:33→22:53)
[2021-04-02] MEDS: THIAMINE HCL 100 MG TABLET (FP) PO SCH (22:52)
[2021-04-02] MEDS: QUEtiapine FUMARATE 100 MG TABLET (FP) PO SCH (22:52)
[2021-04-03] MEDS: hydrOXYzine PAMOATE 25 MG CAPSULE (FP) PO SCH ×2 (06:10→10:22)
[2021-04-03] MEDS: PRENATAL VITAMINS W/ FOLIC ACID TABLET (FP) PO SCH (10:22)
[2021-04-03 13:05] VITALS: BP 127/74; PULSE 94; TEMP 97.3
== END 2021-04-03 13:44 | disposition home or self-care (01) | DRG 773 ==
LOC: YASAS 14:25 → Y3N 15:13
PROVIDERS: ADMIT Allergy & Immunology; ATTEND Allergy & Immunology
PROC: HZ2ZZZZ Detoxification Services for Substance Abuse Treatment (ICD-10-PCS; principal; 2021-03-28)
DX: F11.23 Opioid dependence with withdrawal (principal); F12.20 Cannabis dependence, uncomplicated; F17.210 Nicotine dependence, cigarettes, uncomplicated; F31.9 Bipolar disorder, unspecified; F43.10 Post-traumatic stress disorder, unspecified; F19.24 Other psychoactive substance dependence with psychoactive substance-induced mood disorder; F19.282 Other psychoactive substance dependence with psychoactive substance-induced sleep disorder; F41.9 Anxiety disorder, unspecified; F32.A Depression, unspecified; M54.59 Other low back pain; G89.29 Other chronic pain; Z86.69 Personal history of other diseases of the nervous system and sense organs; Z91.51 Personal history of suicidal behavior; Z56.0 Unemployment, unspecified; Z59.01 Sheltered homelessness
CPT/HCPCS: 36415; 80053; 85027; 86780; C9803; J0735; U0003; U0005

== ENCOUNTER 2022-01-20 14:06 | Inpatient (IN) | payer OTHER ==
[2022-01-20 14:51] VITALS: BMI 23.3
[2022-01-20] MEDS ORDERED: DICYCLOMINE HCL 10 MG CAPSULE PO PRN (16:07)
[2022-01-20] MEDS ORDERED: METHOCARBAMOL 500 MG TABLET PO PRN (16:07)
[2022-01-20] MEDS ORDERED: IBUPROFEN 600 MG TABLET (FP) PO PRN (16:07)
[2022-01-20] MEDS ORDERED: ACETAMINOPHEN 325 MG TABLET (FP) PO PRN ×2 (16:07)
[2022-01-20] MEDS ORDERED: IBUPROFEN 400 MG TABLET (FP) PO PRN (16:07)
[2022-01-20] MEDS ORDERED: NICOTINE 10 MG CARTRIDGE (INHALER) IH PRN (16:07)
[2022-01-20] MEDS ORDERED: NICOTINE POLACRILEX 2 MG GUM BUC PRN (16:07)
[2022-01-20] MEDS ORDERED: BENZOCAINE/MENTHOL (CHLORASEPTIC ) LOZENGE MM PRN (16:07)
[2022-01-20] MEDS ORDERED: BISMUTH SUBSALICYLATE 524 MG/30 ML PO PRN (16:07)
[2022-01-20] MEDS ORDERED: NALOXONE HCL (KLOXXADO) 8 MG SPRAY NS PRN (16:07)
[2022-01-20] MEDS ORDERED: MAG HYDROX/AL HYDROX/SIMETH 30 ML UNIT-DOSE CUP PO PRN (16:07)
[2022-01-20] MEDS ORDERED: ONDANSETRON *ODT* 4 MG TABLET SL PRN (16:07)
[2022-01-20] MEDS ORDERED: LOPERAMIDE HCL 2 MG CAPSULE PO PRN (16:07)
[2022-01-20] MEDS ORDERED: BUPRENORPHINE HCL 150 MCG, BUPRENORPHINE HCL 75 MCG BC PRN (16:07)
[2022-01-20] MEDS ORDERED: BUPRENORPHINE HCL 150 MCG, BUPRENORPHINE HCL 75 MCG BC ONE (16:07)
[2022-01-20] MEDS ORDERED: MAGNESIUM CITRATE 300 ML BOTTLE PO PRN (16:07)
[2022-01-20] MEDS ORDERED: MAGNESIUM HYDROX 2400MG/30ML ORAL SUSPENSION 30 ML CUP PO PRN (16:07)
[2022-01-20] MEDS ORDERED: cloNIDine HCL 0.1 MG TABLET PO ONE (17:00)
[2022-01-20] MEDS ORDERED: BUPRENORPHINE HCL 150 MCG FILM BC ONE (17:26)
[2022-01-20] MEDS ORDERED: BUPRENORPHINE HCL 75 MCG FILM BC ONE (17:27)
[2022-01-20] MEDS ORDERED: cloNIDine HCL 0.1 MG TABLET ONE (17:27)
[2022-01-20] MEDS: hydrOXYzine PAMOATE 25 MG CAPSULE (FP) PO SCH ×2 (18:14→22:50)
[2022-01-20] MEDS ORDERED: cloNIDine HCL 0.1 MG TABLET PO PRN (20:07)
[2022-01-20] MEDS: THIAMINE HCL 100 MG TABLET (FP) PO SCH (22:50)
[2022-01-20] MEDS: MELATONIN 5 MG TABLETS PO SCH (22:50)
[2022-01-21] MEDS ORDERED: BUPRENORPHINE HCL 150 MCG, BUPRENORPHINE HCL 75 MCG BC PRN
[2022-01-21] MEDS: hydrOXYzine PAMOATE 25 MG CAPSULE (FP) PO SCH ×5 (08:01→23:06)
[2022-01-21] MEDS: BUPRENORPHINE HCL 150 MCG, BUPRENORPHINE HCL 75 MCG BC SCH ×2 (08:02→18:41)
[2022-01-21] MEDS: NICOTINE 21 MG/24 HOURS TOPICAL PATCH TD SCH (10:35)
[2022-01-21] MEDS: PRENATAL VITAMINS W/ FOLIC ACID TABLET (FP) PO SCH (10:35)
[2022-01-21] MEDS: diazePAM 5 MG TABLET PO PRN ×2 (10:36→18:40)
[2022-01-21 11:17] LABS: HEMATOCRIT 39.7 % (35.4-49); HEMOGLOBIN 12.7 GM/dL (11.7-16.9); MCH 29.9 pg (25.7-33.7); MCHC 31.9 g/dl (32.0-35.9); MEAN CELL VOLUME 93.9 fl (80-96); MEAN PLT VOLUME 7.5 fl (7.5-11.1); PLATELET COUNT 348 10^3/uL (134-434); RBC 4.23 M/mm3 (4.00-5.60); RDW 13.9 % (11.9-15.9); WHITE BLOOD COUNT 10.4 K/mm3 (4.0-10.0)
[2022-01-21 11:39] LABS: CALCIUM 9.2 mg/dL (8.5-10.1)
[2022-01-21 11:40] LABS: ALBUMIN 3.6 g/dl (3.4-5.0); BLOOD UREA NITROGEN 13.7 mg/dL (7-18)
[2022-01-21 11:43] LABS: CREATININE 0.7 mg/dL (0.55-1.3)
[2022-01-21 11:45] LABS: TOT PROT 7.8 g/dl (6.4-8.2)
[2022-01-21] MEDS: MELATONIN 5 MG TABLETS PO SCH (23:06)
[2022-01-21] MEDS: THIAMINE HCL 100 MG TABLET (FP) PO SCH (23:06)
[2022-01-22] MEDS: hydrOXYzine PAMOATE 25 MG CAPSULE (FP) PO SCH ×5 (05:25→22:48)
[2022-01-22] MEDS: BUPRENORPHINE HCL 450 MCG FILM BC SCH ×2 (05:25→18:08)
[2022-01-22] MEDS: diazePAM 5 MG TABLET PO PRN (10:10)
[2022-01-22] MEDS: PRENATAL VITAMINS W/ FOLIC ACID TABLET (FP) PO SCH (10:11)
[2022-01-22] MEDS: NICOTINE 21 MG/24 HOURS TOPICAL PATCH TD SCH (10:12)
[2022-01-22 10:48] LABS: BASO % 0.6 % (0-2.0); EOS % 2.5 % (0-4.5); HEMATOCRIT 40.4 % (35.4-49); HEMOGLOBIN 13.3 GM/dL (11.7-16.9); LYMPH % 12.9 % (8-40); MCH 30.9 pg (25.7-33.7); MCHC 33.1 g/dl (32.0-35.9); MEAN CELL VOLUME 93.5 fl (80-96); MEAN PLT VOLUME 7.1 fl (7.5-11.1); MONO % 8.4 % (3.8-10.2); NEUT % 75.6 % (42.8-82.8); PLATELET COUNT 358 10^3/uL (134-434); RBC 4.32 M/mm3 (4.00-5.60); RDW 14.2 % (11.9-15.9); WHITE BLOOD COUNT 9.5 K/mm3 (4.0-10.0)
[2022-01-22] MEDS: MELATONIN 5 MG TABLETS PO SCH (22:46)
[2022-01-22] MEDS: THIAMINE HCL 100 MG TABLET (FP) PO SCH (22:46)
[2022-01-23] MEDS: BUPRENORPHINE/NALOXONE 4 MG/1 MG FILM PACKET SL SCH ×2 (05:17→17:39)
[2022-01-23] MEDS: hydrOXYzine PAMOATE 25 MG CAPSULE (FP) PO SCH ×5 (05:18→22:27)
[2022-01-23] MEDS: PRENATAL VITAMINS W/ FOLIC ACID TABLET (FP) PO SCH (10:25)
[2022-01-23] MEDS: NICOTINE 21 MG/24 HOURS TOPICAL PATCH TD SCH (10:25)
[2022-01-23 21:11] VITALS: RESP 18; TEMP 97.3
[2022-01-23] MEDS: MELATONIN 5 MG TABLETS PO SCH (22:26)
[2022-01-23] MEDS: THIAMINE HCL 100 MG TABLET (FP) PO SCH (22:26)
[2022-01-24] MEDS: hydrOXYzine PAMOATE 25 MG CAPSULE (FP) PO SCH ×2 (05:15→09:35)
[2022-01-24] MEDS ORDERED: BUPRENORPHINE/NALOXONE 8 MG/2 MG FILM PACKET SL ONE (06:00)
[2022-01-24 07:58] VITALS: BP 117/81; PULSE 89
[2022-01-24] MEDS: NICOTINE 21 MG/24 HOURS TOPICAL PATCH TD SCH (09:35)
[2022-01-24] MEDS: PRENATAL VITAMINS W/ FOLIC ACID TABLET (FP) PO SCH (09:35)
== END 2022-01-24 10:14 | disposition home or self-care (01) | DRG 773 ==
LOC: YASAS 14:06 → Y3N 16:36
PROVIDERS: ADMIT Allergy & Immunology; ATTEND Surgery
PROC: HZ2ZZZZ Detoxification Services for Substance Abuse Treatment (ICD-10-PCS; principal; 2022-01-20)
DX: F11.23 Opioid dependence with withdrawal (principal); F12.20 Cannabis dependence, uncomplicated; F17.210 Nicotine dependence, cigarettes, uncomplicated; F31.9 Bipolar disorder, unspecified; F43.10 Post-traumatic stress disorder, unspecified; D72.829 Elevated white blood cell count, unspecified; M54.50 Low back pain, unspecified; G89.29 Other chronic pain; Z28.310 Unvaccinated for COVID-19; Z28.9 Immunization not carried out for unspecified reason; Z59.01 Sheltered homelessness
CPT/HCPCS: 36415; 80053; 85025; 85027; 86780; C9803-CS; U0003; U0005

== ENCOUNTER 2022-06-08 14:48 | Inpatient (IN) | payer OTHER ==
[2022-06-08 15:27] VITALS: BMI 23.8
[2022-06-08] MEDS ORDERED: POLYETHYLENE GLYCOL (HEALTHYLAX) 3350 17 GM PACKET PO PRN (17:23)
[2022-06-08] MEDS ORDERED: ACETAMINOPHEN 325 MG TABLET (FP) PO PRN (17:23)
[2022-06-08] MEDS ORDERED: IBUPROFEN 600 MG TABLET (FP) PO PRN (17:23)
[2022-06-08] MEDS ORDERED: BENZOCAINE/MENTHOL (CHLORASEPTIC ) LOZENGE MM PRN (17:23)
[2022-06-08] MEDS ORDERED: MAGNESIUM HYDROX 2400MG/30ML ORAL SUSPENSION 30 ML CUP PO PRN (17:23)
[2022-06-08] MEDS ORDERED: IBUPROFEN 400 MG TABLET (FP) PO PRN (17:23)
[2022-06-08] MEDS ORDERED: cloNIDine HCL 0.1 MG TABLET PO PRN (17:23)
[2022-06-08] MEDS ORDERED: NALOXONE HCL (KLOXXADO) 8 MG SPRAY NS PRN (17:23)
[2022-06-08] MEDS ORDERED: NICOTINE POLACRILEX 2 MG GUM BUC PRN (17:23)
[2022-06-08] MEDS ORDERED: MAG HYDROX/AL HYDROX/SIMETH 30 ML UNIT-DOSE CUP PO PRN (17:23)
[2022-06-08] MEDS ORDERED: methaDONE HCL 10 MG TABLET (FOR DETOX USE ONLY) PO ONE (17:23)
[2022-06-08] MEDS ORDERED: DICYCLOMINE HCL 10 MG CAPSULE PO PRN (17:23)
[2022-06-08] MEDS ORDERED: LOPERAMIDE HCL 2 MG CAPSULE PO PRN (17:23)
[2022-06-08] MEDS ORDERED: NICOTINE 10 MG CARTRIDGE (INHALER) IH PRN (17:23)
[2022-06-08] MEDS ORDERED: methaDONE HCL 10 MG TABLET (FOR DETOX USE ONLY) ONE (20:53)
[2022-06-08] MEDS: MELATONIN 5 MG TABLETS PO SCH (23:21)
[2022-06-08] MEDS: THIAMINE HCL 100 MG TABLET (FP) PO SCH (23:21)
[2022-06-09] MEDS: PRENATAL VITAMINS W/ FOLIC ACID TABLET (FP) PO SCH (10:08)
[2022-06-09] MEDS: diazePAM 5 MG TABLET PO PRN (12:39)
[2022-06-09] MEDS: MELATONIN 5 MG TABLETS PO SCH (23:00)
[2022-06-09] MEDS: THIAMINE HCL 100 MG TABLET (FP) PO SCH (23:00)
[2022-06-10] MEDS: ACETAMINOPHEN 325 MG TABLET (FP) PO PRN (05:57)
[2022-06-10] MEDS: BISMUTH SUBSALICYLATE 524 MG/30 ML PO PRN (05:59)
[2022-06-10] MEDS ORDERED: methaDONE HCL 10 MG TABLET (FOR DETOX USE ONLY) PO ONE (10:00)
[2022-06-10] MEDS: PRENATAL VITAMINS W/ FOLIC ACID TABLET (FP) PO SCH (10:27)
[2022-06-10] MEDS: METHOCARBAMOL 500 MG TABLET PO PRN (10:30)
[2022-06-10] MEDS ORDERED: QUEtiapine FUMARATE 25 MG TABLET ONE (21:53)
[2022-06-10] MEDS: QUEtiapine FUMARATE 50 MG TABLET PO SCH (22:36)
[2022-06-10] MEDS: THIAMINE HCL 100 MG TABLET (FP) PO SCH (22:36)
[2022-06-10] MEDS: MELATONIN 5 MG TABLETS PO SCH (22:45)
[2022-06-11] MEDS: ACETAMINOPHEN 325 MG TABLET (FP) PO PRN (06:05)
[2022-06-11] MEDS: BISMUTH SUBSALICYLATE 524 MG/30 ML PO PRN (06:07)
[2022-06-11] MEDS: PRENATAL VITAMINS W/ FOLIC ACID TABLET (FP) PO SCH (09:51)
[2022-06-11] MEDS: diazePAM 5 MG TABLET PO PRN (10:21)
[2022-06-11] MEDS: METHOCARBAMOL 500 MG TABLET PO PRN (10:21)
[2022-06-11] MEDS: NIFEdipine E.R. 30 MG TABLET PO SCH (10:50)
[2022-06-11] MEDS: QUEtiapine FUMARATE 50 MG TABLET PO SCH (22:28)
[2022-06-11] MEDS: THIAMINE HCL 100 MG TABLET (FP) PO SCH (22:28)
[2022-06-11] MEDS: MELATONIN 5 MG TABLETS PO SCH (22:29)
[2022-06-12] MEDS ORDERED: methaDONE HCL 10 MG TABLET (FOR DETOX USE ONLY) PO ONE ×2 (06:00→10:00)
[2022-06-12 06:42] VITALS: RESP 16
[2022-06-12] MEDS: NIFEdipine E.R. 30 MG TABLET PO SCH (10:24)
[2022-06-12] MEDS: diazePAM 5 MG TABLET PO PRN (10:24)
[2022-06-12] MEDS: PRENATAL VITAMINS W/ FOLIC ACID TABLET (FP) PO SCH (10:24)
[2022-06-12] MEDS: METHOCARBAMOL 500 MG TABLET PO PRN (10:24)
[2022-06-12 12:26] LABS: HEMATOCRIT 38.2 % (35.4-49); HEMOGLOBIN 12.6 GM/dL (11.7-16.9); MCH 30.1 pg (25.7-33.7); MEAN CELL VOLUME 91.2 fl (80-96); MEAN PLT VOLUME 7.5 fl (7.5-11.1); PLATELET COUNT 325 10^3/uL (134-434); RBC 4.19 M/mm3 (4.00-5.60); RDW 15.4 % (11.9-15.9); WHITE BLOOD COUNT 6.7 K/mm3 (4.0-10.0)
[2022-06-12 12:35] LABS: ALBUMIN 3.6 g/dl (3.4-5.0)
[2022-06-12 12:39] LABS: CREATININE 0.8 mg/dL (0.55-1.3)
[2022-06-12 12:40] LABS: BILIRUBIN,TOTAL 1.1 mg/dL (0.2-1); TOT PROT 7.6 g/dl (6.4-8.2)
[2022-06-12 13:06] VITALS: TEMP 97.8
[2022-06-12 17:29] VITALS: BP 122/68; PULSE 86
== END 2022-06-12 17:12 | disposition home or self-care (01) | DRG 773 ==
LOC: YASAS 14:48 → Y6N 21:16
PROVIDERS: ADMIT Allergy & Immunology; ATTEND Surgery
PROC: HZ2ZZZZ Detoxification Services for Substance Abuse Treatment (ICD-10-PCS; principal; 2022-06-08)
DX: F11.23 Opioid dependence with withdrawal (principal); F14.20 Cocaine dependence, uncomplicated; F17.210 Nicotine dependence, cigarettes, uncomplicated; F19.280 Other psychoactive substance dependence with psychoactive substance-induced anxiety disorder; F19.282 Other psychoactive substance dependence with psychoactive substance-induced sleep disorder; F31.9 Bipolar disorder, unspecified; F41.9 Anxiety disorder, unspecified; F43.10 Post-traumatic stress disorder, unspecified; M54.50 Low back pain, unspecified; G89.29 Other chronic pain; Z56.0 Unemployment, unspecified; Z59.00 Homelessness unspecified
CPT/HCPCS: 36415; 80053; 85027; 86780; 87811; C9803-CS; U0003; U0005

== ENCOUNTER 2023-04-12 19:16 | Inpatient (IN) | payer OTHER ==
[2023-04-12 20:53] VITALS: BMI 22.6
[2023-04-12] MEDS ORDERED: ONDANSETRON *ODT* 4 MG TABLET SL PRN (23:05)
[2023-04-12] MEDS ORDERED: methaDONE HCL 10 MG TABLET (FOR DETOX USE ONLY) PO ONE (23:05)
[2023-04-12] MEDS ORDERED: NALOXONE HCL 0.4 MG/ML VIAL IM PRN (23:05)
[2023-04-12] MEDS ORDERED: BENZONATATE 200 MG CAPSULE PO PRN (23:05)
[2023-04-12] MEDS ORDERED: MAG HYDROX/AL HYDROX/SIMETH 30 ML UNIT-DOSE CUP PO PRN (23:05)
[2023-04-12] MEDS ORDERED: cloNIDine HCL 0.1 MG TABLET PO PRN (23:05)
[2023-04-12] MEDS ORDERED: IBUPROFEN 600 MG TABLET (FP) PO PRN (23:05)
[2023-04-12] MEDS ORDERED: ACETAMINOPHEN 325 MG TABLET (FP) PO PRN (23:05)
[2023-04-12] MEDS ORDERED: MAGNESIUM HYDROX 2400MG/30ML ORAL SUSPENSION 30 ML CUP PO PRN (23:05)
[2023-04-12] MEDS ORDERED: DICYCLOMINE HCL 10 MG CAPSULE PO PRN (23:05)
[2023-04-12] MEDS ORDERED: BENZOCAINE/MENTHOL (CHLORASEPTIC ) LOZENGE MM PRN (23:05)
[2023-04-12] MEDS ORDERED: POLYETHYLENE GLYCOL (HEALTHYLAX) 3350 17 GM PACKET PO PRN (23:05)
[2023-04-12] MEDS ORDERED: guaiFENesin 600 MG TABLET.ER (FP) PO PRN (23:05)
[2023-04-12] MEDS ORDERED: LOPERAMIDE HCL 2 MG CAPSULE PO PRN (23:05)
[2023-04-12] MEDS ORDERED: BISMUTH SUBSALICYLATE 524 MG/30 ML PO PRN (23:05)
[2023-04-12] MEDS ORDERED: IBUPROFEN 400 MG TABLET (FP) PO PRN (23:05)
[2023-04-12] MEDS ORDERED: NALOXONE HCL (KLOXXADO) 8 MG SPRAY NS PRN (23:05)
[2023-04-13] MEDS ORDERED: methaDONE HCL 10 MG TABLET (FOR DETOX USE ONLY) PO ONE (10:00)
[2023-04-13] MEDS: PRENATAL VITAMINS W/ FOLIC ACID TABLET (FP) PO SCH (10:06)
[2023-04-13] MEDS: NICOTINE 14 MG/24 HOURS TOPICAL PATCH TD SCH (10:06)
[2023-04-13 10:56] LABS: HEMATOCRIT 33.9 % (35.4-49); HEMOGLOBIN 11.3 GM/dL (11.7-16.9); MCH 30.8 pg (25.7-33.7); MCHC 33.3 g/dl (32.0-35.9); MEAN CELL VOLUME 92.6 fl (80-96); MEAN PLT VOLUME 7.2 fl (7.5-11.1); PLATELET COUNT 300 10^3/uL (134-434); RBC 3.66 M/mm3 (4.00-5.60); RDW 13.5 % (11.9-15.9); WHITE BLOOD COUNT 6.5 K/mm3 (4.0-10.0)
[2023-04-13 11:42] LABS: CHLORIDE 104 mmol/L (98-107); POTASSIUM 3.6 mmol/L (3.5-5.1); SODIUM 139 mmol/L (136-145)
[2023-04-13 11:52] LABS: ALBUMIN 3.4 g/dl (3.4-5.0); ANION GAP 6 mmol/L (4-13); BLOOD UREA NITROGEN 12.3 mg/dL (7-18); CO2 29 mmol/L (21-32); GLUCOSE,RANDOM 132 mg/dL (74-106)
[2023-04-13 11:56] LABS: BILIRUBIN,TOTAL 0.9 mg/dL (0.2-1); CREATININE 0.8 mg/dL (0.55-1.3); SGOT/AST 18 U/L (15-37); SGPT/ALT 30 U/L (13-61)
[2023-04-13 11:57] LABS: ALK PHOS 78 U/L (45-117)
[2023-04-13] MEDS: hydrOXYzine PAMOATE 25 MG CAPSULE (FP) PO PRN (13:19)
[2023-04-13] MEDS: METHOCARBAMOL 500 MG TABLET PO PRN ×2 (13:19→22:40)
[2023-04-13] MEDS: THIAMINE HCL 100 MG TABLET (FP) PO SCH (22:39)
[2023-04-13] MEDS: MELATONIN 5 MG TABLETS PO SCH (22:39)
[2023-04-14] MEDS: METHOCARBAMOL 500 MG TABLET PO PRN (09:17)
[2023-04-14] MEDS: hydrOXYzine PAMOATE 25 MG CAPSULE (FP) PO PRN (09:17)
[2023-04-14] MEDS: PRENATAL VITAMINS W/ FOLIC ACID TABLET (FP) PO SCH (09:17)
[2023-04-14] MEDS: NICOTINE 14 MG/24 HOURS TOPICAL PATCH TD SCH (09:17)
[2023-04-14] MEDS ORDERED: methaDONE HCL 10 MG TABLET (FOR DETOX USE ONLY) PO ONE (10:00)
[2023-04-14] MEDS: THIAMINE HCL 100 MG TABLET (FP) PO SCH (22:20)
[2023-04-14] MEDS: MELATONIN 5 MG TABLETS PO SCH (22:20)
[2023-04-14] MEDS: QUEtiapine FUMARATE 50 MG TABLET PO PRN (22:20)
[2023-04-15] MEDS: PRENATAL VITAMINS W/ FOLIC ACID TABLET (FP) PO SCH (09:55)
[2023-04-15] MEDS: NICOTINE 14 MG/24 HOURS TOPICAL PATCH TD SCH (09:55)
[2023-04-15] MEDS: METHOCARBAMOL 500 MG TABLET PO PRN (09:55)
[2023-04-15] MEDS ORDERED: methaDONE HCL 10 MG TABLET (FOR DETOX USE ONLY) PO ONE (10:00)
[2023-04-15] MEDS: MELATONIN 5 MG TABLETS PO SCH (22:22)
[2023-04-15] MEDS: THIAMINE HCL 100 MG TABLET (FP) PO SCH (22:22)
[2023-04-15] MEDS: QUEtiapine FUMARATE 50 MG TABLET PO PRN (22:22)
[2023-04-15] MEDS: hydrOXYzine PAMOATE 25 MG CAPSULE (FP) PO PRN (22:23)
[2023-04-16] MEDS ORDERED: methaDONE HCL 10 MG TABLET (FOR DETOX USE ONLY) PO ONE (10:00)
[2023-04-16] MEDS: NICOTINE 14 MG/24 HOURS TOPICAL PATCH TD SCH (10:09)
[2023-04-16] MEDS: PRENATAL VITAMINS W/ FOLIC ACID TABLET (FP) PO SCH (10:09)
[2023-04-16] MEDS ORDERED: NICOTINE POLACRILEX 2 MG GUM BUC PRN (11:13)
[2023-04-16] MEDS: THIAMINE HCL 100 MG TABLET (FP) PO SCH (22:17)
[2023-04-16] MEDS: QUEtiapine FUMARATE 100 MG TABLET (FP) PO SCH (22:17)
[2023-04-16] MEDS: MELATONIN 5 MG TABLETS PO SCH (22:17)
[2023-04-17] MEDS ORDERED: methaDONE HCL 10 MG TABLET (FOR DETOX USE ONLY) PO ONE (10:00)
[2023-04-17] MEDS: PRENATAL VITAMINS W/ FOLIC ACID TABLET (FP) PO SCH (10:06)
[2023-04-17] MEDS: QUEtiapine FUMARATE 100 MG TABLET (FP) PO SCH (23:01)
[2023-04-17] MEDS: METHOCARBAMOL 500 MG TABLET PO PRN (23:01)
[2023-04-17] MEDS: THIAMINE HCL 100 MG TABLET (FP) PO SCH (23:01)
[2023-04-17] MEDS: MELATONIN 5 MG TABLETS PO SCH (23:01)
[2023-04-18 06:11] VITALS: RESP 16
[2023-04-18] MEDS: PRENATAL VITAMINS W/ FOLIC ACID TABLET (FP) PO SCH (09:12)
[2023-04-18 09:24] VITALS: BP 118/83; PULSE 101; TEMP 97.7
== END 2023-04-18 10:21 | disposition home or self-care (01) | DRG 773 ==
LOC: YASAS 19:16 → Y3N 04-13 03:36
PROVIDERS: ADMIT Allergy & Immunology; ATTEND Allergy & Immunology
PROC: HZ2ZZZZ Detoxification Services for Substance Abuse Treatment (ICD-10-PCS; principal; 2023-04-13)
DX: F11.23 Opioid dependence with withdrawal (principal); F12.20 Cannabis dependence, uncomplicated; F17.210 Nicotine dependence, cigarettes, uncomplicated; F19.282 Other psychoactive substance dependence with psychoactive substance-induced sleep disorder; F19.24 Other psychoactive substance dependence with psychoactive substance-induced mood disorder; F31.9 Bipolar disorder, unspecified; F41.9 Anxiety disorder, unspecified; M54.50 Low back pain, unspecified; G89.29 Other chronic pain; Z56.0 Unemployment, unspecified; Z59.00 Homelessness unspecified
CPT/HCPCS: 36415; 80053; 80307; 85027; 86780; 87635; 87811

== ENCOUNTER 2023-09-12 21:02 | Inpatient (IN) | payer OTHER ==
[2023-09-12 21:40] VITALS: BMI 24.2
[2023-09-12] MEDS ORDERED: BENZOCAINE/MENTHOL (CHLORASEPTIC ) LOZENGE MM PRN (22:26)
[2023-09-12] MEDS ORDERED: BENZONATATE 200 MG CAPSULE PO PRN (22:26)
[2023-09-12] MEDS ORDERED: P-EPHED 60MG/TRIPROLIDI 2.5MG TABLET PO PRN (22:26)
[2023-09-12] MEDS ORDERED: POLYETHYLENE GLYCOL (HEALTHYLAX) 3350 17 GM PACKET PO PRN (22:26)
[2023-09-12] MEDS ORDERED: guaiFENesin 600 MG TABLET.ER (FP) PO PRN (22:26)
[2023-09-12] MEDS ORDERED: NALOXONE HCL 0.4 MG/ML VIAL IM PRN (22:26)
[2023-09-12] MEDS ORDERED: MAG HYDROX/AL HYDROX/SIMETH 30 ML UNIT-DOSE CUP PO PRN (22:26)
[2023-09-12] MEDS ORDERED: NICOTINE POLACRILEX 2 MG GUM BUC PRN (22:26)
[2023-09-12] MEDS ORDERED: IBUPROFEN 400 MG TABLET (FP) PO PRN (22:26)
[2023-09-12] MEDS ORDERED: DICYCLOMINE HCL 10 MG CAPSULE PO PRN (22:26)
[2023-09-12] MEDS ORDERED: NALOXONE HCL (KLOXXADO) 8 MG SPRAY NS PRN (22:26)
[2023-09-12] MEDS ORDERED: ONDANSETRON *ODT* 4 MG TABLET SL PRN (22:26)
[2023-09-12] MEDS ORDERED: BISMUTH SUBSALICYLATE 524 MG/30 ML PO PRN (22:26)
[2023-09-12] MEDS ORDERED: ACETAMINOPHEN 325 MG TABLET (FP) PO PRN (22:26)
[2023-09-12] MEDS ORDERED: MAGNESIUM HYDROX 2400MG/30ML ORAL SUSPENSION 30 ML CUP PO PRN (22:26)
[2023-09-12] MEDS ORDERED: NICOTINE POLACRILEX 2 MG LOZENGE BC PRN (22:26)
[2023-09-12] MEDS ORDERED: DOCUSATE SODIUM 100 MG CAPSULE (FP) PO PRN (22:26)
[2023-09-13] MEDS: PRENATAL VITAMINS W/ FOLIC ACID TABLET (FP) PO SCH (09:38)
[2023-09-13 11:54] LABS: HEMATOCRIT 33.1 % (35.4-49); HEMOGLOBIN 11.3 GM/dL (11.7-16.9); MCH 31.5 pg (25.7-33.7); MCHC 34.2 g/dl (32.0-35.9); MEAN CELL VOLUME 92.2 fl (80-96); MEAN PLT VOLUME 7.3 fl (7.5-11.1); PLATELET COUNT 258 10^3/uL (134-434); RBC 3.59 M/mm3 (4.00-5.60); RDW 13.7 % (11.9-15.9); WHITE BLOOD COUNT 5.2 K/mm3 (4.0-10.0)
[2023-09-13 11:57] LABS: POTASSIUM 3.9 mmol/L (3.5-5.1)
[2023-09-13 12:06] LABS: CALCIUM 8.4 mg/dL (8.5-10.1)
[2023-09-13 12:07] LABS: ALBUMIN 3.2 g/dl (3.4-5.0); BLOOD UREA NITROGEN 12.9 mg/dL (7-18)
[2023-09-13 12:11] LABS: CREATININE 0.7 mg/dL (0.55-1.3)
[2023-09-13 12:12] LABS: BILIRUBIN,TOTAL 0.7 mg/dL (0.2-1); TOT PROT 6.5 g/dl (6.4-8.2)
[2023-09-13] MEDS: methaDONE HCL 10 MG TABLET (FOR DETOX USE ONLY) PO ONE (12:32)
[2023-09-13] MEDS: MELATONIN 5 MG TABLETS PO SCH (22:36)
[2023-09-13] MEDS: THIAMINE 100 MG TABLET PO SCH (22:37)
[2023-09-14] MEDS: cloNIDine HCL 0.1 MG TABLET PO PRN (18:07)
[2023-09-14] MEDS: IBUPROFEN 600 MG TABLET (FP) PO PRN (18:07)
[2023-09-14] MEDS: METHOCARBAMOL 500 MG TABLET PO PRN (18:07)
[2023-09-14] MEDS: hydrOXYzine PAMOATE 25 MG CAPSULE (FP) PO PRN (18:08)
[2023-09-15] MEDS: methaDONE HCL 10 MG TABLET (FOR DETOX USE ONLY) PO ONE (09:53)
[2023-09-15] MEDS: amLODIPine BESYLATE 5 MG TABLET (FP) PO SCH (10:22)
[2023-09-15] MEDS: LOPERAMIDE HCL 2 MG CAPSULE PO PRN (15:49)
[2023-09-16] MEDS: QUEtiapine FUMARATE 100 MG TABLET (FP) PO SCH (22:35)
[2023-09-17] MEDS: methaDONE HCL 10 MG TABLET (FOR DETOX USE ONLY) PO ONE (09:50)
[2023-09-18 07:10] VITALS: BP 114/65; PULSE 62; RESP 16; TEMP 97.3
== END 2023-09-18 10:10 | disposition home or self-care (01) | DRG 773 ==
LOC: YASAS 21:02 → Y6N 23:16
PROVIDERS: ADMIT Allergy & Immunology; ATTEND Surgery
PROC: HZ2ZZZZ Detoxification Services for Substance Abuse Treatment (ICD-10-PCS; principal; 2023-09-12)
DX: F11.23 Opioid dependence with withdrawal (principal); F12.20 Cannabis dependence, uncomplicated; F17.210 Nicotine dependence, cigarettes, uncomplicated; F19.282 Other psychoactive substance dependence with psychoactive substance-induced sleep disorder; F19.24 Other psychoactive substance dependence with psychoactive substance-induced mood disorder; F41.9 Anxiety disorder, unspecified; G47.00 Insomnia, unspecified; M54.50 Low back pain, unspecified; G89.29 Other chronic pain; Z59.00 Homelessness unspecified
CPT/HCPCS: 36415; 80053; 80305; 85027; 86780; 93005; 93010

== ENCOUNTER 2024-12-09 19:44 | Inpatient (IN) | payer OTHER ==
[2024-12-09] MEDS ORDERED: METHOCARBAMOL 500 MG TABLET PO PRN (20:27)
[2024-12-09] MEDS ORDERED: hydrOXYzine PAMOATE 25 MG CAPSULE (FP) PO PRN (20:27)
[2024-12-09] MEDS ORDERED: BENZONATATE 200 MG CAPSULE PO PRN (20:27)
[2024-12-09] MEDS ORDERED: IBUPROFEN 600 MG TABLET (FP) PO PRN (20:27)
[2024-12-09] MEDS ORDERED: NICOTINE POLACRILEX 2 MG LOZENGE BC PRN (20:27)
[2024-12-09] MEDS ORDERED: MAG HYDROX/AL HYDROX/SIMETH 30 ML UNIT-DOSE CUP PO PRN (20:27)
[2024-12-09] MEDS ORDERED: DICYCLOMINE HCL 10 MG CAPSULE PO PRN (20:27)
[2024-12-09] MEDS ORDERED: IBUPROFEN 400 MG TABLET (FP) PO PRN (20:27)
[2024-12-09] MEDS ORDERED: ONDANSETRON *ODT* 4 MG TABLET SL PRN (20:27)
[2024-12-09] MEDS ORDERED: POLYETHYLENE GLYCOL (HEALTHYLAX) 3350 17 GM PACKET PO PRN (20:27)
[2024-12-09] MEDS ORDERED: BISMUTH SUBSALICYLATE 524 MG/30 ML PO PRN (20:27)
[2024-12-09] MEDS ORDERED: ACETAMINOPHEN 325 MG TABLET (FP) PO PRN (20:27)
[2024-12-09] MEDS ORDERED: MAGNESIUM HYDROX 2400MG/30ML ORAL SUSPENSION 30 ML CUP PO PRN (20:27)
[2024-12-09] MEDS ORDERED: LOPERAMIDE HCL 2 MG CAPSULE PO PRN (20:27)
[2024-12-09] MEDS ORDERED: guaiFENesin 600 MG TABLET.ER (FP) PO PRN (20:27)
[2024-12-09] MEDS ORDERED: BENZOCAINE/MENTHOL (CHLORASEPTIC ) LOZENGE MM PRN (20:27)
[2024-12-09] MEDS ORDERED: NICOTINE POLACRILEX 2 MG GUM BUC PRN (20:27)
[2024-12-09] MEDS ORDERED: NALOXONE (NARCAN) HCL 4 MG/0.1 ML SPRAY NS PRN (20:27)
[2024-12-09 20:31] VITALS: BMI 21.9
[2024-12-09] MEDS: THIAMINE 100 MG TABLET PO SCH (21:58)
[2024-12-09] MEDS: MELATONIN 5 MG TABLETS PO SCH (21:58)
[2024-12-10] MEDS: PRENATAL VITAMINS W/ FOLIC ACID TABLET (FP) PO SCH (09:45)
[2024-12-10] MEDS: BUPRENORPHINE/NALOXONE 0.5 MG/0.125 MG FILM SL ONE ×2 (09:46→22:18)
[2024-12-10] MEDS: amLODIPine BESYLATE 5 MG TABLET (FP) PO SCH (09:46)
[2024-12-10 11:12] LABS: MCHC 31.5 g/dl (32.3-36.5); MEAN CELL VOLUME 90.8 fl (79.0-92.2); MEAN PLT VOLUME 9.9 fl (9.4-12.4); RDW 14.3 % (12.1-15.9)
[2024-12-10 11:56] LABS: GLUCOSE,RANDOM 88.0 mg/dL (74-106)
[2024-12-10 11:57] LABS: TOT PROT 7.6 g/dl (6.4-8.2)
[2024-12-10 11:58] LABS: CO2 25.0 mmol/L (21-32)
[2024-12-10 11:59] LABS: ALK PHOS 72.0 U/L (40-150)
[2024-12-10 12:02] LABS: CREATININE 0.76 mg/dL (0.55-1.3); SGOT/AST 19.0 U/L (5-34); SGPT/ALT 10.0 U/L (0-55)
[2024-12-10] MEDS: QUEtiapine FUMARATE 100 MG TABLET (FP) PO SCH (22:15)
[2024-12-11] MEDS: BUPRENORPHINE/NALOXONE 0.5 MG/0.125 MG FILM SL SCH (10:51)
[2024-12-12] MEDS: BUPRENORPHINE/NALOXONE 2 MG/0.5 MG FILM PACKET SL SCH (11:00)
[2024-12-13] MEDS: BUPRENORPHINE/NALOXONE 4 MG/1 MG FILM PACKET SL SCH (09:53)
[2024-12-14] MEDS: BUPRENORPHINE/NALOXONE 8 MG/2 MG FILM PACKET SL SCH (10:50)
[2024-12-15] MEDS: BUPRENORPHINE/NALOXONE 8 MG/2 MG FILM PACKET SL SCH (10:20)
[2024-12-16 06:08] VITALS: BP 117/74; PULSE 60; RESP 18; TEMP 97.7
== END 2024-12-16 09:52 | disposition other institution (70) | DRG 773 ==
LOC: YASAS 19:44 → Y3N 21:28
PROVIDERS: ADMIT Neuromusculoskeletal Medicine & OMM; ATTEND Neuromusculoskeletal Medicine & OMM
PROC: HZ2ZZZZ Detoxification Services for Substance Abuse Treatment (ICD-10-PCS; principal; 2024-12-09)
DX: F11.23 Opioid dependence with withdrawal (principal); F12.20 Cannabis dependence, uncomplicated; F17.210 Nicotine dependence, cigarettes, uncomplicated; F31.9 Bipolar disorder, unspecified; I10 Essential (primary) hypertension; Z56.0 Unemployment, unspecified; Z59.00 Homelessness unspecified
CPT/HCPCS: 36415; 80053; 85027; 86780; 93005; 93010